=== PATIENT | male | born 1955 | race Caucasian/White ===

== ENCOUNTER 2017-06-09 05:18 | Observation (INO) | payer OTHER ==
[2017-06-09] VITALS (13 sets, daily range): BP systolic 98–179; BP diastolic 58–98; PULSE 75–92; TEMP 36.3–37; O2SAT 91–98; Ht 167.6 cm; Wt 81.0 kg
[~2017-06-09] VITALS: Ht 167.6 cm; Wt 81.0 kg
[2017-06-09] MEDS ORDERED: LISI-725 PO (05:57)
[2017-06-09] MEDS ORDERED: QUET1TAB34 PO (05:57)
[2017-06-09] MEDS ORDERED: ASPI-435 (05:57)
[2017-06-09] MEDS ORDERED: ATOR-26 PO (05:57)
[2017-06-09] MEDS ORDERED: METF-384 PO (05:57)
[2017-06-09] MEDS ORDERED: CLOP1TAB15 PO (05:57)
[2017-06-09] MEDS ORDERED: SERT1TAB71 PO (05:57)
[2017-06-09] MEDS ORDERED: PANT40TA PO (05:57)
[2017-06-09] MEDS ORDERED: CARV12.52 PO (05:57)
[2017-06-09] MEDS ORDERED: INSDGI SC (06:00)
[2017-06-09] MEDS ORDERED: SODIUM CHLORIDE 0.9% 1000ML IV SCH ×2 (06:00→15:00)
[2017-06-09] MEDS: CEFAZOLIN 1000MG/55 ML D5W IV SCH ×2 (06:00→08:25)
[2017-06-09] MEDS ORDERED: GABA-113 PO ×2 (06:00→06:02)
[2017-06-09] MEDS ORDERED: QUET1TAB30 PO (06:02)
--- NOTE | 2017-06-09 06:32 | History and Physical ---
History & Physical Date of Service Jun 09, 2017. History & Physical CC: Left leg and foot pain HPI: Mr. Liu was initially seen a few weeks ago and due to the discomfort in his left lower extremity and was advised to undergo ultrasound evaluation of his aortoiliac and lower extremities as well as a surveillance ultrasound of his carotid arteries as he is status post carotid endarterectomy. The patient is in the office today and states that he has constant pain in his left lower extremity worse than his distal calf and foot that is 10/10 at all times. He states that it is bad when it is down, when it is elevated, when he is lying in bed at night. It keeps him awake as well as when he is standing or attempting to walk on it, which he is not particularly able to do. The clinical research nurse with him today states that he does not see a bookstore clerk or allow anyone to touch his feet or cut his toenail. Ultrasound evaluations today demonstrated 60-69% stenosis of the right internal carotid artery, a patent left carotid endarterectomy site without evidence of restenosis, antegrade flow in both vertebrals and normal flow in both subclavian arteries. His aortoiliac ultrasound demonstrates no aneurysm. His left distal external iliac artery demonstrates over 50% stenosis, but otherwise, there is just scattered atherosclerotic disease without hemodynamically significant stenosis. His right lower extremity demonstrates 75% stenosis of his proximal SFA with monophasic flow distal to that lesion, 50% stenosis of his mid SFA and 50% stenosis of the anterior tibial artery with a right SHAN of 0.58 and calcified tibial arteries. His left lower extremity demonstrates a monophasic flow distal to his external iliac artery lesion, patent common femoral artery and stented SFA which is occluded with distal reconstitution distal to the stent. He has heavily calcified tibial arteries and a left SHAN of 0.42. We have no prior studies available for comparison. ALLERGIES: AZITHROMYCIN, CODEINE AND PERCOGESIC AND SIMVASTATIN. MEDICATIONS: Include aspirin, Celexa, Coreg, Lantus, Lipitor, metformin, Neurontin, Plavix, and Protonix. PAST MEDICAL HISTORY: Positive for heart disease, hypertension, diabetes, peripheral vascular occlusive disease and carotid disease. PAST SURGUICAL HISTORY: Includes all the above-mentioned vascular procedures. SOCIAL HISTORY: He smokes 1 pack a day for over 25 years and continues to smoke. He does not drink. REVIEW OF SYSTEMS: Ten systems are reviewed. It is positive findings were intolerance to heat and cold, heartburn, loss of appetite and occasional diarrhea. Also, easy bruisability, and the other positive findings are in the history of present illness. PHYSICAL EXAMINATION: The patient is awake, oriented x3. His blood pressure was 116/80 in the left, 98/72 in the right, heart rate was 92. Head and neck within normal limits. Bilateral carotid bruits. Lungs clear. Heart: Regular rate and rhythm. Abdominal exam is benign. I do not appreciate an aneurysmal dilatation of the aorta. Vascular exam of his lower extremity reveals a femoral pulse of +2 on the right, +1 on the left. I cannot appreciate pedal pulses in either foot. There is decreased capillary refill on the left side. which is just mild. He does have significant decreased capillary refill in the right. The right foot is discolored and has a purplish hue to it. No ulcerations are seen in either foot. Neurologic exam is grossly intact. Impression: Peripheral vascular disease of the left lower extremity with possible rest pain. PLAN AND RECMMENDATIONS: Patient is admitted for arteriography with possible intervention. I have discussed the risks options and benefits of the procedure with the patient. The patient understands the risks options and benefits and agrees to the procedure.
[2017-06-09] MEDS ORDERED: FENTANYL CITRATE INJ 50 MCG/1 ML 2 ML VIAL ONE ×2 (07:34→10:01)
[2017-06-09] MEDS ORDERED: MIDAZOLAM HCL 1 MG/ML 2ML VIAL ONE ×2 (07:35→10:01)
[2017-06-09] MEDS ORDERED: HEPARIN SOD (PORCINE) 1000 UNIT/ML 10 ML VIAL ONE (07:35)
--- NOTE | 2017-06-09 08:20 | History & Physical Bridge Note ---
H&P Re-Evaluation Bridge Note: I have examined the patient, reviewed the History & Physical and in the interval since the performance of the History & Physical I have noted the following changes of clinical significance: No changes noted
--- NOTE | 2017-06-09 08:21 | Procedure Note ---
Pre-Mod Sedation Assessment General Date of Moderate Sedation: Jun 09, 2017. Vital Signs: Vital Signs Past 12 Hours Date Time Temp Pulse Resp B/P (MAP) Pulse Ox O2 Delivery O2 Flow Rate FiO2 06/09/17 07:56 36.8 20 158/62 96 Room Air 06/09/17 06:02 36.8 82 20 158/62 (94) 96 Room Air Pre-Sedation Airway Assessment Short Thick Neck: Yes Hx of Sleep Apnea: No Smoking Status: Current Every Day Smoker Mallampati Classification: Class I ASA Classification: Class II Notes The planned sedation has been discussed with the patient and consent obtained. I have identified the patient, determined the appropriateness of sedation and have assessed the patient immediately prior to the procedure. All medicine(s) and interventions are by my order.
[2017-06-09] MEDS ORDERED: MIDAZOLAM HCL 1 MG/ML 2ML VIAL IV ONE ×2 (08:48→10:03)
[2017-06-09] MEDS ORDERED: FENTANYL CITRATE INJ 50 MCG/1 ML 2 ML VIAL IV ONE ×4 (08:48→10:23)
[2017-06-09] MEDS ORDERED: LIDOCAINE HCL 1% 20 ML VIAL INJ ONE (08:50)
[2017-06-09] MEDS ORDERED: HEPARIN SOD (PORCINE) 1000 UNIT/ML 10 ML VIAL IV ONE (09:39)
[2017-06-09] MEDS ORDERED: IODIXANOL (VISIPAQUE) 270 MG/ML 150ML FLUSH ONE (10:42)
--- NOTE | 2017-06-09 10:56 | [facility] Post Operative Brief Note ---
Immediate Operative Summary Operative Date Jun 09, 2017. Pre-Operative Diagnosis left superficial artery occlusion Post-Operative Diagnosis same Procedure(s) Performed Left Lower Extremity Angiogram, Percutaneous Transluminal Angioplasty and Stenting Of Left Superficial Artery, Percutaneous Transluminal Angioplasty Left Common Femoral Artery, Aortogram, Moderate Concious Sedation [address] Mckeon Pulpwood Cutter Surgeon(s) none Estimated Blood Loss 15 ml Findings occlusion of left sfa stents, small distal arteries, moderate infrapopliteal disease, very poor outflow to foot, good popliteal doppler post procedure. Will admit for observation due to foot pain and sluggish flow to foot Specimens none Anesthesia Local with sedation Complication(s) None Disposition
[2017-06-09] MEDS ORDERED: GLUCOSE 40% GEL 15 GM TUBE PO PRN (11:15)
[2017-06-09] MEDS ORDERED: OXYCODONE/ACETAMINOPHEN 5-325 TAB PO PRN (11:15)
[2017-06-09] MEDS ORDERED: DEXTROSE 50% 50 ML SYR IV PRN (11:15)
[2017-06-09] MEDS ORDERED: GLUCAGON FOR INJ 1 MG VIAL SQ PRN (11:15)
[2017-06-09] MEDS ORDERED: QUETIAPINE FUMARATE 25 MG TAB PO PRN (11:15)
[2017-06-09] MEDS ORDERED: GLUCOSE 10 TABS/TUBE PO PRN (11:15)
--- NOTE | 2017-06-09 11:18 | Procedure Note ---
Post-Moderate Sedation Plan General Date of Moderate Sedation Jun 09, 2017. Vital Signs: Vital Signs Past 12 Hours Date Time Temp Pulse Resp B/P (MAP) Pulse Ox O2 Delivery O2 Flow Rate FiO2 06/09/17 10:56 88 16 166/74 97 Nasal Cannula 4 06/09/17 07:56 36.8 20 158/62 96 Room Air 06/09/17 06:02 36.8 82 20 158/62 (94) 96 Room Air Review - Discharge Plan Post Moderate Sedation Plan: On clinical assessment, the patient appears to have tolerated the conscious sedation without complications. Patient is recovering as anticipated. Patient will continue to be monitored by nursing and may be discharged when conscious sedation discharge criteria are met.
[2017-06-09] MEDS ORDERED: PHARMACY GLYCEMIC MGMT CONSULT SCH (12:00)
[2017-06-09] MEDS ORDERED: MoRPHine SULFATE 2 MG/ML CARP ONE (12:02)
[2017-06-09] MEDS ORDERED: IV FLUIDS COMPLETED PRN (12:30)
[2017-06-09] MEDS ORDERED: SODIUM CHLORIDE 0.9% 1000ML 1,000 ML IV SCH (14:00)
[2017-06-09] MEDS ORDERED: MoRPHine SULFATE 4 MG/ML 1 ML CARP\\VIAL IV PRN (14:00)
[2017-06-09] MEDS ORDERED: MoRPHine SULFATE 2 MG/ML CARP IV PRN ×2 (14:00)
--- NOTE | 2017-06-09 14:16 | Pharmacy Progress Note ---
Glycemic Control Intl Consult Date of Service Jun 09, 2017. Scope Glycemic Pharmacist consulted by Dr Mckeon on 06/09/17 for glycemic control and to write orders per [facility] inpatient glycemic control protocol Objective Weight (Kilograms): 81 Accuchecks BSG (last 24hrs): Test 06/09/17 05:35 06/09/17 13:03 Bedside Glucose 158 mg/dl (70-99) 139 mg/dl (70-99) Recent Pertinent Medications Outpatient Anti-diabetic Regimen: * Lantus 40 units SQ HS * Metformin 1,000mg PO BIDM Risk Factors for Insulin Resistance: * Recent Surgery * Diet * IVF Assessment & Plan ASSESSMENT: * 61yo T2DM male with unknown degree of outpatient control. Will order A1c w/AM labs per protocol * Pt is maintained on basal insulin (Lantus) + oral antidiabetic agents as an outpatient * Oral agents are not recommended for inpatient use d/t drug interactions, changing PO intake, and difficulty titrating for acute hyper/hypoglycemia. ADA recommends re-initiating outpatient oral agents 1-2 days prior to discharge if/ when appropriate if they were held on admission. * Will hold oral agents for admission and utilize SQ basal bolus insulin regimen which is the recommended regimen for inpatient glycemic control. * Will initiate outpatient dosing and corresponding bolus insulin per parameters and titrate based on BSG trends. * Patient only administered 50% (20 units) of Lantus last evening in prep of NPO/surgery today. Will give full dose of Lantus tonight but may need to decrease further dosing as this outpatient dosing may be covering some prandial needs. * ADA & AACE recommend a goal blood sugar range 140-180 mg/dl for the majority of critically ill & non-critically ill patients. However, more stringent targets may be selected in individual cases. Will utilize more stringent goal of 110-140mg/dl based on patient age & comorbidities. Additionally, tighter glycemic control is warranted to facilitate wound/infection healing post- operatively. PLAN FOR INPATIENT GLYCEMIC CONTROL: * Holding outpatient oral diabetes medications * Basal insulin * Lantus 40 units SQ HS (this is outpatient dosing) titrate further doses based on BSG trends as this basal insulin dosing may be covering some prandial needs * Bolus insulin * NovoLog per scale ACHS or Q6hrs while NPO * Goal Range: Low 110 mg/dL - High 140 mg/dL * Correction Factor: 25 mg/dL/unit * Nutritional / Prandial insulin per carb ratio of 1 unit per 9 grams CHO consumed * A1c with AM labs * Please note that the plan above was derived based on current level of insulin resistance and hospital stress. These recommendations are appropriate for inpatient admission only. Plan of care upon discharge will need to be reassessed to avoid potential outpatient hypo/hyperglycemia. Thank you.
[2017-06-09] MEDS ORDERED: HEPARIN 25,000 UNIT/500ML D5W 500 ML IV PRN (14:30)
[2017-06-09] MEDS ORDERED: NURSING VERBAL MED ORDER ONE (15:00)
[2017-06-09] MEDS ORDERED: TRAMADOL HCL 50 MG TAB PO PRN (15:00)
[2017-06-09] MEDS: GABAPENTIN 300 MG CAP PO SCH (16:57)
[2017-06-09] MEDS ORDERED: INSULIN GLARGINE SOLOSTAR 100 UNITS/ML 3 ML PEN SC SCH (17:45)
[2017-06-09] MEDS: INSULIN ASPART 100 UNITS/ML 3 ML PEN SC SCH ×2 (18:28→22:12)
[2017-06-09] MEDS ORDERED: GABAPENTIN 300 MG CAP PO SCH (21:00)
[2017-06-09] MEDS ORDERED: QUETIAPINE FUMARATE 100 MG TAB PO SCH (21:00)
[2017-06-09] MEDS: MoRPHine SULFATE 4 MG/ML 1 ML CARP\\VIAL IV PRN (21:49)
[2017-06-09] MEDS: CARVEDILOL 12.5 MG TAB PO SCH (22:03)
[2017-06-10 03:56] VITALS: BP 90/57; PULSE 84; TEMP 36.9; O2SAT 92
[2017-06-10] MEDS: GABAPENTIN 300 MG CAP PO SCH ×2 (06:22→12:00)
[2017-06-10 07:45] VITALS: BP 89/53; PULSE 91; O2SAT 92
[2017-06-10] MEDS: INSULIN ASPART 100 UNITS/ML 3 ML PEN SC SCH ×2 (08:00→12:00)
[2017-06-10] MEDS ORDERED: PANTOprazole SOD 40 MG TAB PO SCH (09:00)
[2017-06-10] MEDS ORDERED: LISINOPRIL 20 MG TAB PO SCH (09:00)
[2017-06-10] MEDS ORDERED: ASPIRIN 81 MG ECTAB PO SCH (09:00)
[2017-06-10] MEDS ORDERED: SERTRALINE HCL 50 MG TAB PO SCH (09:00)
[2017-06-10] MEDS: CARVEDILOL 12.5 MG TAB PO SCH (09:00)
[2017-06-10] MEDS ORDERED: ATORVASTATIN 20 MG TAB PO SCH (09:00)
[2017-06-10] MEDS: MoRPHine SULFATE 4 MG/ML 1 ML CARP\\VIAL IV PRN (09:10)
--- NOTE | 2017-06-10 09:42 | Pharmacy Progress Note ---
Glycemic: Assessment & Plan Date of Service Jun 10, 2017. Assessment & Plan The patient is currently receiving 52 units of insulin per day. BSGs ranging 139 - 192 mg/dl over the past 24hrs. * Basal insulin: Lantus 40 units every 24 hours * Correctional Insulin: Novolog Correction per scale ACHS Goal Range: Low 110 mg/dL - High 140 mg/dL Correction Factor: 25 mg/dL/unit * Prandial insulin: Per carb ratio of 1 unit per 9 grams CHO consumed ASSESSMENT: * BSGs have been fairly stable but fasting is above goal this AM * I suspect that this is a result of reduced basal on 06/08 * Current basal dose is already a large portion of TDD so will tighten CF to provide additional coverage for today * A1c still pending so difficult to assess outpatient control PLAN FOR INPATIENT GLYCEMIC CONTROL: * Continue Lantus 40 units qHS * Continue Novolog ACHS * Goal 110-140 * TIGHTEN CF to 20 * CR 9 Pharmacy will continue to monitor patient daily and write orders per [facility] inpatient glycemic control protocol. Thanks. * Please note that the plan above was derived based on current level of insulin resistance and hospital stress. These recommendations are appropriate for inpatient admission only. Plan of care upon discharge will need to be reassessed to avoid potential outpatient hypo/hyperglycemia.
[2017-06-10 11:49] LABS: ESTIMATED AVERAGE GLUCOSE 154 mg/dl; HA1C FLAG Normal (Normal)
[2017-06-10 12:07] LABS: BUN/CREATININE RATIO 20.8 (10-20); CALCIUM 8.9 mg/dl (8.5-10.1); CREATININE 1.3 mg/dl (0.60-1.40); POTASSIUM 4.6 mmol/L (3.5-5.1)
--- NOTE | 2017-06-10 12:30 | Progress Note ---
Progress Note Date of Service: Jun 10, 2017. Subjective Wants to be left alone, Foot hurts if you touch it. Objective Vital Signs Vital Signs Past 12 Hours Date Time Temp Pulse Resp B/P (MAP) Pulse Ox O2 Delivery O2 Flow Rate FiO2 06/10/17 08:40 Room Air 06/10/17 07:45 91 20 89/53 (65) 92 Room Air 06/10/17 03:56 36.9 84 16 90/57 (68) 92 Room Air Exam Awake Alert Puncture site without problems Foot warm to touch. Laboratory and Microbiology Results Past 24 Hours Test 06/09/17 13:03 06/09/17 17:06 06/09/17 21:38 06/10/17 07:57 Range/Units Bedside Glucose 139 167 192 190 70-99 mg/dl Test 06/10/17 10:55 06/10/17 10:56 06/10/17 11:04 Range/Units Activated Partial Thromboplast Time 26.2 21.0-31.0 SECONDS Partial Thromboplastin Ratio 1.0 Sodium Level 134 136-145 mmol/L Potassium Level 4.6 3.5-5.1 mmol/L Chloride Level 102 98-107 mmol/L Carbon Dioxide Level 28 21-32 mmol/L Anion Gap 4.0 3-11 mmol/L Blood Urea Nitrogen 27 7-18 mg/dl Creatinine 1.30 0.60-1.40 mg/dl Est Creatinine Clear Calc Drug Dose 60.4 ml/min Estimated GFR () 68.7 Estimated GFR (Non- 59.3 BUN/Creatinine Ratio 20.8 10-20 Random Glucose 210 70-99 mg/dl Estimated Average Glucose 154 mg/dl Hemoglobin A1c 7.0 4.5-5.6 % Calcium Level 8.9 8.5-10.1 mg/dl Bedside Glucose 210 70-99 mg/dl Imp: Post stenting of SFA Plan: Foot warm. Will d/c today. Patient refusing most care.
--- NOTE | 2017-06-10 12:32 | Discharge Instructions ---
Discharge Instructions Date of Service Jun 10, 2017. Admission Reason for Admission: Ischemic Pain Of Left Foot Discharge Discharge Diagnosis / Problem: Superficial femoral artery occlusion Discharge Goals Goal(s): Therapeutic intervention Activity Recommendations Activity Limitations: per Instructions/Follow-up section . Instructions / Follow-Up Instructions / Follow-Up Call [phone] to schedule a follow up appointment if one not already scheduled. SPECIAL CARE INSTRUCTIONS: Medications: * Continue to take your medications as directed. If you have been given a prescription for Plavix, please fill it immediately and take as directed. Incision Care: * Your puncture site may have some bruising and minor swelling for about one week. * You will have a small dressing covering your puncture site. You may remove the dressing after 24 hours and shower. You may let the warm soapy water run over it, but be sure to dry the puncture site well and keep it dry. * DO NOT IMMERSE THE INCISION IN A TUB/POOL/etc. UNTIL HEALED. * Puncture sites should be kept covered with a band-aid until it begins to heal. Restrictions: * Depending on whether you leg or arm was punctured to access the arteries, you will be required to lay flat, hold your arm still, or both, for about 4 hours after the procedure to prevent bleeding. * Limit your activity for the first 48 hours. You may walk and go up and down steps. Avoid excessive bending or movement at the puncture site. Possible Complications: * Excessive Swelling - after blood flow is improved you may notice increased swelling in the lower legs. This is a normal response. This usually depends on the amount of blockages in the leg, how long they have been there prior to your procedure and how much blood flow was restored. Elevating your legs will help to improve this. Please notify our office ([phone] ) if the swelling does not go away after lying in bed overnight. * Infection/Drainage/Bleeding - Drainage or bleeding from the puncture site should be minimal. If you have excessive bleeding or drainage, call our office ([phone]) right away. * Pain - You may experience some mild pain or soreness at your puncture site. If your pain does not improve, please contact our office ([phone]). Call your doctor and seek emergent treatment if you develop: * Temperature above 101 degrees * Any fever or chills * Any redness or purulent drainage from the puncture site * Any new dusky/blue colored toes or feet with coolness or sharp or aching pain. SKIN IRRITATION: * You may experience some redness and/or swelling in the area where radiation was administered. If any skin irritation occurs, please contact your family physician. FOLLOW UP VISIT: Keep any scheduled doctor appointments. Current Hospital Diet Patient's current hospital diet: Diabetes Type 2 Diet, AHA Diet (Heart Healthy) Discharge Diet Recommended Diet: AHA Diet (Heart Healthy), Diabetes Type 2 Diet Procedures Procedures Performed: Left Lower Extremity Angiogram, Percutaneous Transluminal Angioplasty and Stenting Of Left Superficial Artery, Percutaneous Transluminal Angioplasty Left Common Femoral Artery, Aortogram, Moderate Concious Sedation 0848 to 1055 Pending Studies Studies pending at discharge: no Laboratory Results Hemoglobin A1c Test 06/10/17 10:56 Range/Units Estimated Average Glucose 154 mg/dl Hemoglobin A1c 7.0 H 4.5-5.6 % Medical Emergencies . Who to Call and When: Medical Emergencies: If at any time you feel your situation is an emergency, please call 911 immediately. . Non-Emergent Contact Non-Emergency issues call your: Surgeon . "Provider Documentation" section prepared by Davin Mckeon. . VTE Core Measure Inpt VTE Proph given/why not?: Enoxaparin (Lovenox)SQ
[2017-06-10 13:55] VITALS: BP 112/67; PULSE 91; TEMP 36.9; O2SAT 92
--- NOTE | 2017-06-16 10:47 | DISCHARGE SUMMARY ---
ADMISSION DIAGNOSIS: Severe peripheral vascular disease, left lower extremity with rest pain. DISCHARGE DIAGNOSES: 1. Status post left lower extremity angiography with REAMING MACHINE OPERATOR [employer] P[employer] and stenting of the left superficial femoral artery and REAMING MACHINE OPERATOR [employer] P[employer] of left common femoral artery. 2. Severe left lower extremity peripheral arterial disease with rest pain. DISCHARGE CONDITION: Stable. CONSULTATIONS IN THE HOSPITAL: Included none. PROCEDURES IN THE HOSPITAL: Included his left lower extremity angiography with REAMING MACHINE OPERATOR FOR PLASTIC and stenting of his SFA and REAMING MACHINE OPERATOR [employer] P[employer]IC of his left common femoral artery performed on 06/09/2017 without any significant complications with an EBL of 15 mL. HISTORY OF PRESENT ILLNESS: Mr. Liu is a 61-year-old male who was seen a few weeks prior to this due to severe discomfort in his left lower extremity and history of peripheral arterial disease as well as carotid disease. He was describing the pain in his left foot as being constant, although sometimes waxing and waning slightly. He states the pain was keeping him awake at night and it is as at 10/10 at all times and is particularly painful when he was ambulating. He had an ultrasound performed which demonstrated significant disease in his left lower extremity and left SHAN of 0.4, which was likely falsely elevated due to heavily calcified tibial arteries. He was recommended to undergo left leg arteriography with intervention if possible to alleviate his discomfort. HOSPITAL COURSE: The patient was admitted on 06/09/2017 after undergoing his left lower extremity angiography with intervention for observation. During the procedure, the patient was noted to have significant distal disease with very poor outflow to the foot and while everything was done during the procedure that was possible to be performed, it was felt to be prudent to keep the patient for observation overnight. The patient continued to have some pain in his foot and did not state that it was significantly improved; however, he was very belligerent and wished to leave the hospital as he was refusing all IVs or pain medication. The patient was discharged home on postop day #1. PHYSICAL EXAMINATION: VITAL SIGNS: On day of discharge, patient's vital signs was as follows: Blood pressure of 90/57, respiratory rate of 16, pulse of 91, temperature of 36.9 and pulse oximetry of 92% on room air. CONSTITUTIONAL AND GENERAL: The patient is a chronically ill appearing older than stated age appearing male in no acute distress. He does have some difficulty understanding and cooperating due to being mentally handicapped. HEAD: Normocephalic and atraumatic. EYES: EOMI. ENMT: He demonstrates no hearing loss, rhinorrhea or pharyngeal erythema. NECK: Supple, nontender, midline trachea without masses or crepitus. LUNGS: Exam demonstrates no dyspnea, they are decreased throughout but clear. ABDOMEN: Soft, nontender with normoactive bowel sounds in all 4 upper quadrants. No organomegaly. There is no flank or CVA tenderness. EXTREMITIES: His puncture site at the groin is healing well. There is no edema or discharge. The area is mildly tender and there is a slight area of ecchymosis but no hematoma noted. His femoral pulse was +2 bilaterally. Left DP and PT pulses are nonpalpable. He did have a dopplerable popliteal. His left foot demonstrated slightly improved capillary refill and was slightly warmer than prior to the procedure. He did not appear to have any signs of a compartment syndrome. He is no ulcerations on the foot or toes. NEUROLOGICAL: He has grossly intact cranial nerves and grossly intact sensation but was uncooperative for any further testing. DIET: Should be a low cholesterol AHA diabetic diet. FOLLOWUP: Should be with Dr. Mckeon in 2 weeks for reevaluation of his puncture site as well as his leg. MEDICATIONS: Reconciled in the chart and are as per his discharge instructions. The patient is to call the office if any other questions.
[2017-06-29] MEDS ORDERED: GABA-112 PO (10:45)
[2017-06-29] MEDS ORDERED: TAMS0.4C38 PO (10:49)
[2017-06-29] MEDS ORDERED: SULF10SO2 OPL (10:49)
[2017-07-14] MEDS ORDERED: HYDR2TAB48 PO (09:06)
[2017-07-14] MEDS ORDERED: NF656 TOP (09:06)
--- NOTE | 2017-07-14 09:44 | DIAGNOSTIC IMAGING REPORT ---
DATE OF PROCEDURE: 06/09/2017 PREOPERATIVE DIAGNOSIS: Left superficial femoral artery occlusion. POSTOPERATIVE DIAGNOSIS: Same. PROCEDURE PERFORMED: Left lower extremity arteriography, percutaneous transluminal angioplasty and stenting of the superficial femoral artery on the left side, percutaneous transluminal angioplasty of the left common femoral artery, aortogram and conscious sedation, 08:48to 10:55. SURGEON: Davin Mckeon MD ANESTHETIC: Local with sedation. PROCEDURE INDICATIONS: The patient is a 61-year-old gentleman with severe ischemia of the left lower extremity. Arteriography with possible intervention was recommended for limb salvage. He understood the risks, options and benefits and agreed to have this procedure. The patient was taken to the angiogram suite and placed in supine position. After the groins were prepped and draped in a sterile manner, local anesthetic was administered. Percutaneous puncture was made of the right common femoral artery. An 0.035 wire was inserted into the aorta from the 5 Romanian sheath which was inserted into the groin. A pigtail was then inserted. Arteriography was performed. This showed the renal arteries to be patent. The aorta and iliac had mild disease but were fairly small. The left external iliac artery distally was significantly narrowed as well as the common femoral. There was total occlusion of the superficial femoral artery at its origin as well as occlusion of the profunda with a tight origin of the 1 profunda branch. The superficial femoral artery reconstituted at the adductor hiatus. There was anterior tibial and peroneal run off seen down to the ankle. There was no posterior tibial artery below the ankle and a very small dorsalis pedis, which had a short occlusion at the ankle joint. The SFA did have previous stents which were occluded. We tried to get a wire down through the superficial femoral artery. We managed to cannulate the graft where the stent that was present. We did this with an 0.035 wire and a Quick-Cross. Once the Quick-Cross was through the lesions, we pulled the wire. We did hand injection which showed it to be true lumen. There was better visualization distally and arteries were fairly extremely small distally. We then ballooned the superficial femoral artery and common femoral artery. We reinserted the wire through the Quick-Cross. We used a 4 x 100 Carmel balloon to make a channel through the occluded stents. Once this was done, we upsized to a 7 x 100 balloon. We got a slightly better opening. We then decided to restent this area. We used a 5 x 100 Tigress stent into the left superficial femoral artery followed by a 6 x 100 x2 for the superficial femoral artery proximally. We ended with a 7 x 100 Tigress in the proximal superficial femoral artery. The balloon was then reinserted using a 5 x 100 balloon. The stents were ballooned in their entirety. Once these areas were ballooned, another arteriogram was performed post-stenting. This showed flow through the stent; however, was very sluggish. We did reinsert Quick-Cross down below the stents to check the outflow. Due to the small vessel size occlusion of the foot, the outflow was very poor. I don't think restenting of the superficial and common in its total length was going to have good prospects of staying open due to the outflow disease. At that point we decided to do no further interventions. The destination sheath which was in the right groin which was exchanged previously was removed over wire. The puncture site closed with a Star closure device. Adequate hemostasis was noted on the groin and sterile dressings were then applied. The patient then left the angio suite in good condition and tolerated the procedure well.
== END 2017-06-10 14:45 | disposition home health service (06) ==
LOC: C.ACU 05:18 → C.MSN 11:17 → EDBEDREQ 11:37 → ENRESERV 11:47
PROVIDERS: ADMIT Surgery Vascular Surgery; ATTEND Surgery Vascular Surgery
DX: I70.202 Unspecified atherosclerosis of native arteries of extremities, left leg (principal); I73.9 Peripheral vascular disease, unspecified; E11.9 Type 2 diabetes mellitus without complications; I10 Essential (primary) hypertension; Z98.890 Other specified postprocedural states; Z88.1 Allergy status to other antibiotic agents; Z88.5 Allergy status to narcotic agent; F17.200 Nicotine dependence, unspecified, uncomplicated; Z79.82 Long term (current) use of aspirin; Z79.4 Long term (current) use of insulin; Z79.01 Long term (current) use of anticoagulants

== ENCOUNTER 2017-07-07 09:47 | Inpatient (IN) | payer OTHER ==
[2017-06-29 10:50] VITALS: BMI 26.0
--- NOTE | 2017-06-29 11:42 | PAT Medication Instructions ---
Service Date Jun 29, 2017. Current Home Medication List Aspirin (Aspirin 81), QAM Atorvastatin (Lipitor), 80 MG PO HS Carvedilol (Coreg), 1 TAB PO BID Clopidogrel (Plavix), 2 TAB PO QAM Gabapentin (Neurontin), 100 MG PO 5XDAY Insulin Glargine (Lantus), 40 SC QPM Lisinopril (Zestril), 20 MG PO QAM Metformin Hcl (Glucophage), 1,000 MG PO BID Pantoprazole (Protonix), 40 MG PO BID Quetiapine Fumarate (Seroquel), 100 MG PO HS Quetiapine Fumarate (Seroquel), 25 MG PO QAM PRN for Anxiety Sertraline Hcl (Zoloft), 50 MG PO QAM Sulfacetamide Sodium (Ophth) (Bleph-10), 1 DROPS OPL QID Tamsulosin Hcl (Flomax), 0.4 MG PO HS Medication Instructions For Your Scheduled Surgery -Hold the following medications per your surgeon's instructions: Clopidogrel (Plavix), 2 TAB PO QAM - Hold the following medications 48 hours prior to surgery: Metformin Hcl (Glucophage), 1,000 MG PO BID - Hold the following medications the morning of surgery: Lisinopril (Zestril), 20 MG PO QAM - Take the following medications the morning of surgery with a sip of water: Sulfacetamide Sodium (Ophth) (Bleph-10), 1 DROPS OPL QID (bring with you to the hospital) Quetiapine Fumarate (Seroquel), 25 MG PO QAM PRN for Anxiety Pantoprazole (Protonix), 40 MG PO BID Gabapentin (Neurontin), 100 MG PO 5XDAY Carvedilol (Coreg), 1 TAB PO BID Aspirin (Aspirin 81), QAM Sertraline Hcl (Zoloft), 50 MG PO QAM - Take the following medications as scheduled the night before surgery: Tamsulosin Hcl (Flomax), 0.4 MG PO HS Sulfacetamide Sodium (Ophth) (Bleph-10), 1 DROPS OPL QID Quetiapine Fumarate (Seroquel), 100 MG PO HS Pantoprazole (Protonix), 40 MG PO BID Insulin Glargine (Lantus), 40 SC QPM Gabapentin (Neurontin), 100 MG PO 5XDAY Atorvastatin (Lipitor), 80 MG PO HS Carvedilol (Coreg), 1 TAB PO BID If you have any questions please call us at [phone] or [phone] or [phone]
[2017-06-29 12:37] LABS: BASO % 0.6 %; BASO ABS # 0.08 K/uL (0-0.2); EOS % 3.7 %; EOS ABS # 0.49 K/uL (0-0.5); HEMATOCRIT 40.2 % (42-52); IG# 0.03 K/uL (0.00-0.02); LYMPH % 25.9 %; LYMPH ABS # 3.43 K/uL (1.2-3.4); MEAN CELL VOLUME 89.5 fL (80-100); MEAN CORPUSCULAR HGB CONC 32.3 g/dl (32-36); MEAN PLATELET VOLUME 11.4 fL (7.4-10.4); MONO ABS # 0.92 K/uL (0.11-0.59); NEUT % 62.6 %; NEUT ABS # 8.28 K/uL (1.4-6.5); PLATELET COUNT 327 K/uL (130-400); RED CELL DISTRIBUTION WIDTH CV 12.8 % (11.5-14.5); RED CELL DISTRIBUTION WIDTH SD 41.8 fL (36.4-46.3); WHITE BLOOD COUNT 13.23 K/uL (4.8-10.8)
--- NOTE | 2017-06-29 12:37 | DIAGNOSTIC IMAGING REPORT ---
CHEST 2 VIEWS ROUTINE HISTORY: 61 years-old Male PAT preoperative exam. No acute chest complaints. Left lower extremity ischemia COMPARISON: None available TECHNIQUE: PA and lateral views of the chest FINDINGS: Prior median sternotomy. Surgical clips project over the left heart border, left neck and left lung apex. No pneumothorax, pleural effusion, focal airspace consolidation or overt pulmonary edema. Cholecystectomy clips noted. Multilevel endplate spurring of the spine. Bones are grossly intact. IMPRESSION: No acute cardiopulmonary process. The above report was generated using voice recognition software. It may contain grammatical, syntax or spelling errors. Electronically signed by: Dano Yepez M.D. 06/29/2017 12:36 PM Dictated Date/Time: 06/29/2017 12:34 PM
[2017-06-29 12:51] LABS: INR 1.1 (0.9-1.1); PTT PATIENT 25.3 SECONDS (21.0-31.0)
[2017-06-29 13:07] LABS: CALCIUM 9.4 mg/dl (8.5-10.1); CREATININE 1.83 mg/dl (0.60-1.40); POTASSIUM 5.1 mmol/L (3.5-5.1)
[2017-07-07] VITALS (9 sets, daily range): BP systolic 122–174; BP diastolic 79–92; PULSE 88–107; TEMP 36.6–36.9; O2SAT 93–98; Ht 167.6 cm; Wt 73.0 kg
[~2017-07-07] VITALS: Ht 167.6 cm; Wt 73.0 kg
--- NOTE | 2017-07-07 06:20 | History and Physical ---
History & Physical Date of Service Jul 07, 2017. History & Physical CC: Left leg and foot pain HPI: Mr. Liu was initially seen due to the discomfort in his left lower extremity and was advised to undergo ultrasound evaluation of his aortoiliac and lower extremities as well as a surveillance ultrasound of his carotid arteries as he is status post carotid endarterectomy. The patient is in the office today and states that he has constant pain in his left lower extremity worse than his distal calf and foot that is 10/10 at all times. He states that it is bad when it is down, when it is elevated, when he is lying in bed at night. It keeps him awake as well as when he is standing or attempting to walk on it, which he is not particularly able to do. The etl database developer with him today states that he does not see a retail analyst or allow anyone to touch his feet or cut his toenail. Ultrasound evaluations today demonstrated 60-69% stenosis of the right internal carotid artery, a patent left carotid endarterectomy site without evidence of restenosis, antegrade flow in both vertebrals and normal flow in both subclavian arteries. His aortoiliac ultrasound demonstrates no aneurysm. His left distal external iliac artery demonstrates over 50% stenosis , but otherwise, there is just scattered atherosclerotic disease without hemodynamically significant stenosis. His right lower extremity demonstrates 75 % stenosis of his proximal SFA with monophasic flow distal to that lesion, 50% stenosis of his mid SFA and 50% stenosis of the anterior tibial artery with a right SHAN of 0.58 and calcified tibial arteries. His left lower extremity demonstrates a monophasic flow distal to his external iliac artery lesion, patent common femoral artery and stented SFA which is occluded with distal reconstitution distal to the stent. He has heavily calcified tibial arteries and a left SHAN of 0.42. We have no prior studies available for comparison. He underwent arteriography and found not to be a candidate for any intervention, endovascular or open ALLERGIES: AZITHROMYCIN, CODEINE AND PERCOGESIC AND SIMVASTATIN. MEDICATIONS: Include aspirin, Celexa, Coreg, Lantus, Lipitor, metformin, Neurontin, Plavix, and Protonix. PAST MEDICAL HISTORY: Positive for heart disease, hypertension, diabetes, peripheral vascular occlusive disease and carotid disease. PAST SURGUICAL HISTORY: Includes all the above-mentioned vascular procedures. SOCIAL HISTORY: He smokes 1 pack a day for over 25 years and continues to smoke. He does not drink. REVIEW OF SYSTEMS: Ten systems are reviewed. It is positive findings were intolerance to heat and cold, heartburn, loss of appetite and occasional diarrhea. Also, easy bruisability, and the other positive findings are in the history of present illness. PHYSICAL EXAMINATION: The patient is awake, oriented x3. His blood pressure was 116/80 in the left, 98/72 in the right, heart rate was 92. Head and neck within normal limits. Bilateral carotid bruits. Lungs clear. Heart: Regular rate and rhythm. Abdominal exam is benign. I do not appreciate an aneurysmal dilatation of the aorta. Vascular exam of his lower extremity reveals a femoral pulse of +2 on the right, +1 on the left. I cannot appreciate pedal pulses in either foot. There is decreased capillary refill on the left side. which is just mild. He does have significant decreased capillary refill in the right. The right foot is discolored and has a purplish hue to it. No ulcerations are seen in either foot. Neurologic exam is grossly intact. Impression: Peripheral vascular disease of the left lower extremity with rest pain. PLAN AND RECMMENDATIONS: Patient is admitted for left BKA. I have discussed the risks options and benefits of the procedure with the patient. The patient understands the risks options and benefits and agrees to the procedure.
[~2017-07-07 09:47] MED LIST: ASPI-435; ATOR-26 PO; CARV12.52 PO; CLOP1TAB15 PO; GABA-112 PO; INSDGI SC; LACTATED RINGER'S 1000ML 1,000 ML IV SCH; LISI-725 PO; METF-384 PO; PANT40TA PO; QUET1TAB30 PO; QUET1TAB34 PO; SERT1TAB71 PO; SODIUM CHLORIDE 0.9% 1000ML 1,000 ML IV SCH; SULF10SO2 OPL; TAMS0.4C38 PO
[2017-07-07] MEDS ORDERED: ATROPINE SULFATE 0.1 MG/ML 5ML SYR IV PRN (11:15)
[2017-07-07] MEDS ORDERED: MEPERIDINE HCL 25 MG/ML CARP IV PRN (11:15)
[2017-07-07] MEDS ORDERED: EpHEDrine SULFATE INJ 50 MG/ML AMP IV PRN (11:15)
[2017-07-07] MEDS ORDERED: LABETALOL HCL IV 5 MG/ML 20ML IV PRN (11:15)
[2017-07-07] MEDS ORDERED: ONDANSETRON INJ 2 MG/ML 2 ML VIAL IV PRN (11:15)
[2017-07-07] MEDS ORDERED: FENTANYL CITRATE INJ 50 MCG/1 ML 2 ML VIAL ONE (12:09)
[2017-07-07] MEDS ORDERED: ROCURONIUM BROMIDE 10 MG/ML 5 ML VIAL IV ONE (13:09)
[2017-07-07] MEDS ORDERED: ONDANSETRON INJ 2 MG/ML 2 ML VIAL ONE (13:09)
[2017-07-07] MEDS ORDERED: GLYCOPYRROLATE INJ 0.2 MG/ML VIAL ONE (13:09)
[2017-07-07] MEDS ORDERED: PROPOFOL IV EMULSION 10 MG/ML 20 ML VIAL IV ONE (13:09)
[2017-07-07] MEDS ORDERED: NEOSTIGMINE METHYLSULFATE 5 MG/5 ML SYR ONE (13:09)
[2017-07-07] MEDS ORDERED: CEFAZOLIN SOD 1 GM VIAL ONE (13:10)
--- NOTE | 2017-07-07 13:21 | [facility] Post Operative Brief Note ---
Immediate Operative Summary Operative Date Jul 07, 2017. Pre-Operative Diagnosis Peripheral vascular disease left lower extremity Post-Operative Diagnosis Same as preop Procedure(s) Performed Left Below the Knee Amputation Surgeon Dr. Mckeon Bottle Selector Surgeon(s) Rhett Rico PA-C Estimated Blood Loss 150 cc Findings viable muscle, good bleeding Specimens A: left below the knee amputation Anesthesia Gen Complication(s) None Disposition Recovery Room / PACU
[2017-07-07] MEDS ORDERED: OXYCODONE/ACETAMINOPHEN 5-325 TAB PO PRN (13:30)
[2017-07-07] MEDS ORDERED: CEFAZOLIN IV 1,000 MG in DEXTROSE 5% 50ML 50 ML IV SCH (13:30)
[2017-07-07] MEDS ORDERED: GLUCOSE 10 TABS/TUBE PO PRN (13:30)
[2017-07-07] MEDS ORDERED: GLUCAGON FOR INJ 1 MG VIAL SQ PRN (13:30)
[2017-07-07] MEDS ORDERED: GLUCOSE 40% GEL 15 GM TUBE PO PRN (13:30)
[2017-07-07] MEDS ORDERED: DEXTROSE 50% 50 ML SYR IV PRN (13:30)
[2017-07-07] MEDS ORDERED: QUETIAPINE FUMARATE 25 MG TAB PO PRN (13:30)
--- NOTE | 2017-07-07 13:35 | [facility] Operative Report ---
Operative Report Operative Date Jul 07, 2017. Pre-Operative Diagnosis Peripheral vascular disease left lower extremity Post-Operative Diagnosis Same as preop Procedure(s) Performed Left Below the Knee Amputation Surgeon Dr. Mckeon Reinsurance Accountant Surgeon(s) Rhett Rico PA-C Estimated Blood Loss 150 cc Findings good viable muscle Specimens A: left below the knee amputation Anesthesia Gen Complication(s) None Disposition Recovery Room / PACU Indications This is a 61-year-old white diabetic male with ischemic rest pain of his left foot. He could not be treated with any endovascular or open procedure to increase the flow. Left below the knee amputation was recommended. I have discussed the risks options and benefits of the procedure with the patient. The patient understands the risks options and benefits and agrees to the procedure. Description of Procedure The patient was taken to the operating room placed in the supine position. After general anesthesia was accomplished the left leg was prepped and draped in a sterile manner. Incision was made 5 fingerbreadths below the tibial tuberosity mid way through the left lower leg. Anterior compartment muscles were divided. Anterior tibial artery bundle was clamped and divided. The fibula was then transected 2 cm proximal to the point of the tibial transection. This was done with the power saw. The periosteum was then elevated from the tibia. A Gigli saw was used and the tibia was transected and beveled anteriorly. The surface of the bone was nice and smooth without any jagged edges. Using the amputation knife the posterior flap was made using the soleus and gastroc muscles as a base of the flap. All muscle appeared to be very viable with good bleeding. Adequate hemostasis was then obtained. Hemostasis was noted and the flap was brought up anteriorly. The fascial layers were approximated using interrupted 3-0 Vicryl. Leanna were used for the skin edges. Sterile dressings were applied. Patient left the operating room in satisfactory condition and tolerated the procedure well. Nahomy Rico Pac assisted due to lack of resident availability and was necessary for prepping, draping, retraction, wound closure defects, subQ and skin closure and was necessary for the case. I attest to the content of the Intraoperative Record and any orders documented therein. Any exceptions are noted below.
[2017-07-07] MEDS: FENTANYL CITRATE INJ 50 MCG/1 ML 2 ML VIAL IV PRN ×4 (13:42→14:27)
[2017-07-07] MEDS: HYDROmorphone INJ 1 MG/ML SYR IV PRN ×3 (13:56→14:41)
--- NOTE | 2017-07-07 14:03 | Anesthesiology Progress Note ---
Anesthesia Post Op Note Date & Time Jul 07, 2017 at 14:03 Vital Signs Pain Intensity: 7 Vital Signs Past 12 Hours Date Time Temp Pulse Resp B/P (MAP) Pulse Ox O2 Delivery O2 Flow Rate FiO2 07/07/17 13:55 88 12 165/89 95 Nasal Cannula 2 07/07/17 13:45 88 12 169/85 99 Oxymask 10 07/07/17 13:35 77 17 154/79 99 Oxymask 07/07/17 13:29 36.8 74 18 157/74 98 Oxymask 07/07/17 10:26 36.6 88 18 122/84 97 Room Air Notes Mental Status: alert / awake / arousable, participated in evaluation Pt Amnestic to Procedure: Yes Nausea / Vomiting: adequately controlled Pain: adequately controlled Airway Patency, RR, SpO2: stable & adequate BP & HR: stable & adequate Hydration State: stable & adequate Anesthetic Complications: no major complications apparent
[2017-07-07] MEDS ORDERED: GABA-112 PO (16:42)
[2017-07-07] MEDS ORDERED: NURSING VERBAL MED ORDER ONE (17:15)
[2017-07-07] MEDS: INSULIN HUMAN REGULAR SC SCH ×2 (17:15→21:30)
[2017-07-07] MEDS: SULFACETAMIDE SODIUM 10% OP SOLN 15 ML BTL OPL SCH ×2 (17:26→20:42)
[2017-07-07] MEDS: MoRPHine SULFATE 2 MG/ML CARP IV PRN ×2 (17:27→20:46)
[2017-07-07] MEDS: GABAPENTIN 100 MG CAP PO SCH ×2 (18:20→20:45)
[2017-07-07] MEDS: CEFAZOLIN IV 1,000 MG in SYRINGE 0 ML IV SCH (20:42)
[2017-07-07] MEDS: CARVEDILOL 12.5 MG TAB PO SCH (20:43)
[2017-07-07] MEDS: ATORVASTATIN 40 MG TAB PO SCH (20:44)
[2017-07-07] MEDS: TAMSULOSIN HCL 0.4 MG CAP PO SCH (20:44)
[2017-07-07] MEDS: PANTOprazole SOD 40 MG TAB PO SCH (20:45)
[2017-07-07] MEDS: QUETIAPINE FUMARATE 100 MG TAB PO SCH (20:45)
[2017-07-07] MEDS: MoRPHine SULFATE 4 MG/ML 1 ML CARP\\VIAL IV PRN (23:36)
[2017-07-08] VITALS (7 sets, daily range): BP systolic 104–166; BP diastolic 73–91; PULSE 96–111; TEMP 36.9–37.1; O2SAT 93–96
[2017-07-08] MEDS: CEFAZOLIN IV 1,000 MG in SYRINGE 0 ML IV SCH (03:59)
[2017-07-08] MEDS: MoRPHine SULFATE 4 MG/ML 1 ML CARP\\VIAL IV PRN ×3 (07:36→15:15)
[2017-07-08] MEDS: ENOXAPARIN 30 MG/0.3 ML SYR SQ SCH ×3 (07:37→21:00)
[2017-07-08] MEDS: GABAPENTIN 100 MG CAP PO SCH ×4 (07:39→21:00)
--- NOTE | 2017-07-08 08:23 | Progress Note ---
Progress Note Date of Service: Jul 08, 2017. Subjective Not answering questions today. Claims he cant straighten his left leg when asked Objective Vital Signs Vital Signs Past 12 Hours Date Time Temp Pulse Resp B/P (MAP) Pulse Ox O2 Delivery O2 Flow Rate FiO2 07/08/17 07:41 37.1 100 18 166/91 (116) 95 Room Air 07/08/17 03:55 36.9 98 18 131/76 (94) 96 Room Air 07/07/17 23:30 Room Air 07/07/17 22:58 36.9 97 18 166/82 (110) 93 Room Air 07/07/17 20:40 96 148/81 (103) Exam Awake and alert. VSS Afebrile Dressing intact Unable to touch due to patient Patient will not try to straighten his stump. Laboratory and Microbiology Results Past 24 Hours Test 07/07/17 10:13 07/07/17 13:49 07/07/17 17:11 07/07/17 20:28 Range/Units Bedside Glucose 183 140 149 148 70-99 mg/dl Test 07/08/17 04:44 Range/Units Imp: Post left BKA Plan: Will need residential placement.
[2017-07-08] MEDS ORDERED: TRAMADOL HCL 50 MG TAB PO PRN (08:30)
[2017-07-08] MEDS: INSULIN HUMAN REGULAR SC SCH ×4 (09:48→21:47)
[2017-07-08] MEDS: LISINOPRIL 20 MG TAB PO SCH (09:52)
[2017-07-08] MEDS: CARVEDILOL 12.5 MG TAB PO SCH ×2 (09:52→21:41)
[2017-07-08] MEDS: ASPIRIN 81 MG ECTAB PO SCH (09:53)
[2017-07-08] MEDS: CLOPIDOGREL BISULFATE 75 MG TAB PO SCH (09:53)
[2017-07-08] MEDS: SERTRALINE HCL 50 MG TAB PO SCH (09:53)
[2017-07-08] MEDS: PANTOprazole SOD 40 MG TAB PO SCH ×2 (09:53→21:43)
[2017-07-08] MEDS: SULFACETAMIDE SODIUM 10% OP SOLN 15 ML BTL OPL SCH ×4 (09:54→21:00)
[2017-07-08] MEDS: MoRPHine SULFATE 2 MG/ML CARP IV PRN (21:35)
[2017-07-08] MEDS: QUETIAPINE FUMARATE 100 MG TAB PO SCH (21:36)
[2017-07-08] MEDS: ATORVASTATIN 40 MG TAB PO SCH (21:37)
[2017-07-08] MEDS: TAMSULOSIN HCL 0.4 MG CAP PO SCH (21:37)
[2017-07-09] MEDS: MoRPHine SULFATE 4 MG/ML 1 ML CARP\\VIAL IV PRN (02:27)
[2017-07-09 07:56] VITALS: BP 148/87; PULSE 99; TEMP 36.6; O2SAT 96
[2017-07-09] MEDS: ENOXAPARIN 30 MG/0.3 ML SYR SQ SCH ×2 (09:00→21:19)
[2017-07-09] MEDS: GABAPENTIN 100 MG CAP PO SCH ×4 (09:10→21:18)
[2017-07-09] MEDS: ASPIRIN 81 MG ECTAB PO SCH (09:11)
[2017-07-09] MEDS: PANTOprazole SOD 40 MG TAB PO SCH ×2 (09:12→21:18)
[2017-07-09] MEDS: CLOPIDOGREL BISULFATE 75 MG TAB PO SCH (09:12)
[2017-07-09] MEDS: LISINOPRIL 20 MG TAB PO SCH (09:12)
[2017-07-09] MEDS: SERTRALINE HCL 50 MG TAB PO SCH (09:13)
[2017-07-09] MEDS: SULFACETAMIDE SODIUM 10% OP SOLN 15 ML BTL OPL SCH ×4 (09:14→21:18)
[2017-07-09] MEDS: INSULIN HUMAN REGULAR SC SCH ×4 (09:19→21:27)
--- NOTE | 2017-07-09 09:32 | Progress Note ---
Progress Note Date of Service: Jul 09, 2017. Subjective Complaining of incisional pain Objective Vital Signs Vital Signs Past 12 Hours Date Time Temp Pulse Resp B/P (MAP) Pulse Ox O2 Delivery O2 Flow Rate FiO2 07/09/17 07:56 36.6 99 16 148/87 (107) 96 Room Air 07/09/17 00:20 Room Air 07/08/17 22:59 37.1 103 17 148/85 (106) 93 Room Air Exam VSS Afebrile Right leg with good dopplers Left leg incision dry and clean. Laboratory and Microbiology Results Past 24 Hours Test 07/08/17 11:54 07/08/17 16:38 07/08/17 20:38 Range/Units Bedside Glucose 137 162 182 70-99 mg/dl Imp: Post BKA Plan: Doing well Await placement. Can be d/c'd when bed available.
[2017-07-09] MEDS: CARVEDILOL 12.5 MG TAB PO SCH ×2 (13:17→21:18)
[2017-07-09] MEDS: TRAMADOL HCL 50 MG TAB PO PRN (13:18)
[2017-07-09 15:00] VITALS: BP 175/88; PULSE 100; TEMP 36.6; O2SAT 96
[2017-07-09 15:50] VITALS: O2SAT 96
[2017-07-09] MEDS ORDERED: NURSING VERBAL MED ORDER ONE (16:00)
[2017-07-09] MEDS ORDERED: MoRPHine SULFATE 2 MG/ML CARP ONE (16:08)
[2017-07-09 21:03] VITALS: BP 162/85; PULSE 92
[2017-07-09] MEDS: ATORVASTATIN 40 MG TAB PO SCH (21:18)
[2017-07-09] MEDS: TAMSULOSIN HCL 0.4 MG CAP PO SCH (21:18)
[2017-07-09] MEDS: QUETIAPINE FUMARATE 100 MG TAB PO SCH (21:18)
[2017-07-09 22:53] VITALS: BP 119/76; PULSE 93; TEMP 37.1; O2SAT 94
[2017-07-10 03:34] VITALS: BP 98/64; PULSE 89; TEMP 37.1; O2SAT 95
--- NOTE | 2017-07-10 07:57 | Anesthesiology Progress Note ---
Anesthesia Post Op Note Date & Time Jul 10, 2017 at 07:57 Vital Signs Vital Signs Past 12 Hours Date Time Temp Pulse Resp B/P (MAP) Pulse Ox O2 Delivery O2 Flow Rate FiO2 07/10/17 03:34 37.1 89 16 98/64 (75) 95 Room Air 07/09/17 23:55 Room Air 07/09/17 22:53 37.1 93 16 119/76 (90) 94 Room Air 07/09/17 21:03 92 162/85 (110) Notes Mental Status: alert / awake / arousable, participated in evaluation Pt Amnestic to Procedure: Yes Nausea / Vomiting: adequately controlled Pain: adequately controlled Airway Patency, RR, SpO2: stable & adequate BP & HR: stable & adequate Hydration State: stable & adequate Anesthetic Complications: no major complications apparent
[2017-07-10 07:58] VITALS: BP 118/72; PULSE 93; TEMP 36.8; O2SAT 93
[2017-07-10] MEDS: INSULIN HUMAN REGULAR SC SCH ×3 (08:00→13:04)
[2017-07-10] MEDS: ASPIRIN 81 MG ECTAB PO SCH ×2 (08:21→12:58)
[2017-07-10] MEDS: GABAPENTIN 100 MG CAP PO SCH ×2 (08:21→12:56)
[2017-07-10] MEDS: CLOPIDOGREL BISULFATE 75 MG TAB PO SCH ×2 (08:21→12:57)
[2017-07-10] MEDS: CARVEDILOL 12.5 MG TAB PO SCH ×2 (08:21→12:57)
[2017-07-10] MEDS: SULFACETAMIDE SODIUM 10% OP SOLN 15 ML BTL OPL SCH ×2 (08:21→12:58)
[2017-07-10] MEDS: LISINOPRIL 20 MG TAB PO SCH ×2 (08:21→12:57)
[2017-07-10] MEDS: PANTOprazole SOD 40 MG TAB PO SCH ×2 (08:22→12:57)
[2017-07-10] MEDS: SERTRALINE HCL 50 MG TAB PO SCH ×2 (08:22→12:57)
[2017-07-10] MEDS: ENOXAPARIN 30 MG/0.3 ML SYR SQ SCH (08:22)
--- NOTE | 2017-07-10 09:09 | Clinical Documentation Query ---
Dr. MARTIN, CLAFLIN : CLINICAL DOCUMENTATION QUERY Patient is a 61 year old male who underwent left BKA for PVD of the left lower extremity. Preoperative BUN, creatinine, and estimated GFR were 39 mg/dl, 1.83 mg/dl, and 39 ml/min. Values two weeks prior were 27 mg/dl, 1.30 mg/dl, and 59 ml/min. Please clarify as clinically appropriate. Thank you. In your clinical opinion is this patient being managed for: ( ) FARTUN on CKD stage 3 ( ) Not Agree ( ) Other explanation of clinical findings (Please Explain) ( ) Unable to determine (Please Define) ( ) Need to Discuss The medical record reflects the following clinical findings, treatment, and risk factors. Clinical Indicators: As above Treatment: Serial chemistries Risk Factors: Age, hypertension, diabetes Please clarify and document your clinical opinion in the progress notes and discharge summary. Terms such as "probable", "suspected", "likely", "questionable", "possible", or "still to be ruled out" are acceptable. IF IN AGREEMENT, YOU MUST DOCUMENT ABOVE DIAGNOSTIC STATEMENT IN DAILY PROGRESS NOTES AND DISCHARGE SUMMARY. This document is not part of the patient's record. Thank You, Rashel Mo, [place] [phone]
--- NOTE | 2017-07-10 09:37 | Progress Note ---
Progress Note Date of Service: Jul 10, 2017. Subjective 61 yo m with multiple medical problems, POD #3 after LLE BKA, seen in f/u today. Pt admits pain in LLE, but denies any other complaints. Per RN, pt refusing pain medication as well as other meds. Objective Vital Signs Vital Signs Past 12 Hours Date Time Temp Pulse Resp B/P (MAP) Pulse Ox O2 Delivery O2 Flow Rate FiO2 07/10/17 07:58 36.8 93 20 118/72 (87) 93 Room Air 07/10/17 03:34 37.1 89 16 98/64 (75) 95 Room Air 07/09/17 23:55 Room Air 07/09/17 22:53 37.1 93 16 119/76 (90) 94 Room Air Exam CONST: A&O x3, NAD, chronically ill appearing male CHEST: RRR, lungs decreased, but ctab ABD: soft, nontender, + bs x 4 quad EXT: LLE BKA site C/D/I with lemuel, Mild edema, no necrosis or erythema noted. + tenderness and contracture. Laboratory and Microbiology Results Past 24 Hours Test 07/09/17 12:14 07/09/17 16:56 07/09/17 20:19 07/10/17 04:44 Range/Units Bedside Glucose 161 183 180 70-99 mg/dl ASSESSMENT and PLAN: s/p LLE BKA Severe LLE PAD with rest pain Pt doing generally well post op. D/C to [facility] today. Will see in office in 2 weeks.
[2017-07-10] MEDS ORDERED: ULT50X PO (09:38)
--- NOTE | 2017-07-10 09:42 | Discharge Instructions ---
Discharge Instructions Date of Service Jul 10, 2017. Admission Reason for Admission: Ischemic Rest Pain Left Leg Discharge Discharge Diagnosis / Problem: Post Left Leg Below Knee Amputation, Left Leg ischemic rest pain Discharge Goals Goal(s): Decrease discomfort, Therapeutic intervention Activity Recommendations Activity Limitations: per Instructions/Follow-up section . Instructions / Follow-Up Instructions / Follow-Up May shower, no bathing. Keep wound clean and dry, no dressing required. Follow up with Dr Mckeon or Nahomy Rico PA-C in 2 wks for staple removal. Call [phone] for appt. Current Hospital Diet Patient's current hospital diet: AHA Diet (Heart Healthy), Diabetes Type 2 Diet Discharge Diet Recommended Diet: AHA Diet (Heart Healthy), Diabetes Type 2 Diet Procedures Procedures Performed: Left Below the Knee Amputation Pending Studies Studies pending at discharge: no Laboratory Results Hemoglobin A1c Test 06/10/17 10:56 Range/Units Estimated Average Glucose 154 mg/dl Hemoglobin A1c 7.0 H 4.5-5.6 % Medical Emergencies . Who to Call and When: Medical Emergencies: If at any time you feel your situation is an emergency, please call 911 immediately. . Non-Emergent Contact Non-Emergency issues call your: Primary Care Provider . "Provider Documentation" section prepared by Nahomy Rico. . VTE Core Measure Inpt VTE Proph given/why not?: Enoxaparin (Lovenox) [place] Drug Monitoring Program Search Results: patient reviewed within database, no issues identified
[2017-07-10 11:58] VITALS: BP 118/72; PULSE 93; TEMP 36.8; O2SAT 93
[2017-07-10] MEDS: TRAMADOL HCL 50 MG TAB PO PRN (12:56)
[2017-07-10] MEDS ORDERED: MoRPHine SULFATE 2 MG/ML CARP IV ONE (16:00)
[2017-07-14] MEDS ORDERED: HYDR2TAB48 PO (09:06)
[2017-07-14] MEDS ORDERED: NF656 TOP (09:06)
--- NOTE | 2017-07-14 11:47 | DISCHARGE SUMMARY ---
SUPERVISING PHYSICIAN: Davin Mckeon MD ADMISSION DIAGNOSIS: Peripheral vascular disease of the left lower extremity with rest pain. DISCHARGE DIAGNOSES: 1. Status post left lower extremity [id number] amputation. 2. Severe peripheral arterial disease with rest pain of the left lower extremity. DISCHARGE CONDITION: Stable. CONSULTATIONS IN THE HOSPITAL: Included none. PROCEDURES WHILE IN THE HOSPITAL: Included his left lower extremity below the knee amputation, which was performed on 07/07/2017 with an EBL of 150 mL and no significant complications. HISTORY OF PRESENT ILLNESS: Mr. Liu is a 61-year-old male with a history of heart disease, hypertension, diabetes, peripheral vascular disease, carotid disease and mental handicap who presented to our office for evaluation of severe left lower extremity pain. Ultrasound had indicated severe arterial disease and he was recommended to undergo arteriography for verification. During the angiography procedure, the patient did undergo TANYARD WORKER of some of the distal vessels; however, he had severe infrapopliteal disease which excluded him from candidacy for bypass procedure. The patient continued to have severe left lower extremity pain even after his angiography and was recommended to consider undergoing a below the knee amputation to alleviate his pain. HOSPITAL COURSE: The patient was admitted on 07/07/2017 after undergoing his left lower extremity [id number] amputation. The patient remained essentially stable postoperatively. He refused further blood draws. His vital signs remained stable. He was somewhat belligerent and uncooperative with nursing staff, which is not unusual for him. He was finally able to obtain a bed at [facility] on postop day #3. PHYSICAL EXAMINATION: VITAL SIGNS: On day of discharge, his vital signs were as follows: A temperature of 36.8, pulse of 93, respiratory rate of 20, blood pressure 118/72, pulse oximetry of 93% on room air. CONSTITUTIONAL AND GENERAL: The patient is a chronically ill appearing, ill kept, uncooperative elderly male in no acute distress. He was nonambulatory and in bed due to his BKA. HEAD: Normocephalic and atraumatic. EYES: EOMI. ENMT: Exam demonstrated no hearing loss, rhinorrhea or pharyngeal erythema. NECK: Supple, nontender with a midline trachea without masses or crepitus. LUNGS: Exam demonstrated no dyspnea. They were decreased throughout but clear bilaterally. CARDIOVASCULAR: Demonstrated nondisplaced apical impulse with a regular rate and rhythm without murmurs, lifts, heaves, thrills or gallops. Peripheral pulses are full and equal in all extremities unless otherwise noted, specifically they were normal in his carotid, brachial, and radial pulses. His left femoral pulse is +2. His right femoral pulse is +2. His right lower extremity distal pulses are nonpalpable. He does have brisk capillary refill to his right toes and no signs of distal ischemia in the right leg. ABDOMEN: Soft, nontender with normoactive bowel sounds in all 4 quadrants without guarding or rebound. There was no flank or CVA tenderness. MUSCULOSKELETAL: Demonstrated normal tone and strength for age excluding his right lower extremity BKA site. Upper extremities demonstrate no cyanosis, edema, clubbing, varicosities or ulcers. The patient's left lower extremity BKA surgical site appears to be well approximated with lemuel and healing appropriately. There is minimal edema. He does appear to have a knee contracture, which he refuses to straighten out or to allow staff to straighten due to pain. Pain level appears to be controlled on medications unless the wound is being touched or moved. There is no erythema, ecchymosis or discharge from the area. DIET UPON DISCHARGE: Should be a low cholesterol, diabetic AHA diet. MEDICATIONS UPON DISCHARGE: Reconciled on the chart and are as per his discharge instructions. FOLLOWUP: Should be with Dr. Mckeon or his PA Nahomy Rico within 2-3 weeks for reevaluation and removal of lemuel. The patient was advised to call with any other questions.
== END 2017-07-10 14:01 | DRG 240 ==
LOC: C.ACU 09:47 → C.MSN 10:09 → ENRESERV 15:13
PROVIDERS: ADMIT Surgery Vascular Surgery; ATTEND Surgery Vascular Surgery
PROC: 0Y6J0Z2 Detachment at Left Lower Leg, Mid, Open Approach (ICD-10-PCS; principal; 2017-07-04)
DX: E11.51 Type 2 diabetes mellitus with diabetic peripheral angiopathy without gangrene (principal); T82.898A Other specified complication of vascular prosthetic devices, implants and grafts, initial encounter; I73.9 Peripheral vascular disease, unspecified; I25.10 Atherosclerotic heart disease of native coronary artery without angina pectoris; Z79.82 Long term (current) use of aspirin; I10 Essential (primary) hypertension; F17.210 Nicotine dependence, cigarettes, uncomplicated; Y83.2 Surgical operation with anastomosis, bypass or graft as the cause of abnormal reaction of the patient, or of later complication, without mention of misadventure at the time of the procedure; Y92.019 Unspecified place in single-family (private) house as the place of occurrence of the external cause

== ENCOUNTER → 2017-07-19 | Outpatient (CLI) | payer OTHER ==
[~2017-07-19] MED LIST changes: +HYDR2TAB48 PO; -LACTATED RINGER'S 1000ML 1,000 ML IV SCH; +NF656 TOP; -SODIUM CHLORIDE 0.9% 1000ML 1,000 ML IV SCH; +ULT50X PO
== END | disposition home or self-care (01) ==
LOC: C.RDSM 10:00
PROVIDERS: ATTEND Orthopaedic Surgery Sports Medicine
DX: M25.562 Pain in left knee (principal)

== ENCOUNTER 2017-08-03 12:32 | Inpatient (IN) | payer OTHER ==
[~2017-08-03] VITALS: Ht 167.6 cm; Wt 82.0 kg
--- NOTE | 2017-08-03 10:31 | History and Physical ---
History & Physical Date of Service Aug 03, 2017. History & Physical CC: Left leg infected BKA stump HPI: Mr. Liu had a left BKA performed which looked good after surgery. He subsequently had what appeared to be pressure necrosis of the stump from a cast used on his stump. He now requires an AKA. ALLERGIES: AZITHROMYCIN, CODEINE AND PERCOGESIC AND SIMVASTATIN. MEDICATIONS: Include aspirin, Celexa, Coreg, Lantus, Lipitor, metformin, Neurontin, Plavix, and Protonix. PAST MEDICAL HISTORY: Positive for heart disease, hypertension, diabetes, peripheral vascular occlusive disease and carotid disease. PAST SURGUICAL HISTORY: Includes all the above-mentioned vascular procedures. SOCIAL HISTORY: He smokes 1 pack a day for over 25 years and continues to smoke. He does not drink. REVIEW OF SYSTEMS: Ten systems are reviewed. It is positive findings were intolerance to heat and cold, heartburn, loss of appetite and occasional diarrhea. Also, easy bruisability, and the other positive findings are in the history of present illness. PHYSICAL EXAMINATION: The patient is awake, oriented x3. His blood pressure was 116/80 in the left, 98/72 in the right, heart rate was 92. Head and neck within normal limits. Bilateral carotid bruits. Lungs clear. Heart: Regular rate and rhythm. Abdominal exam is benign. I do not appreciate an aneurysmal dilatation of the aorta. Vascular exam of his lower extremity reveals a femoral pulse of +2 on the right, +1 on the left. I cannot appreciate pedal pulses in the right foot. There is an open necrotic left BKA stump He does have significant decreased capillary refill in the right. The right foot is discolored and has a purplish hue to it. No ulcerations are seen in either foot. Neurologic exam is grossly intact. Impression: Left lower extremity open necrotic BKA stump PLAN AND RECMMENDATIONS: Patient is admitted for a left AKA. I have discussed the risks options and benefits of the procedure with the patient. The patient understands the risks options and benefits and agrees to the procedure.
[~2017-08-03 12:32] MED LIST changes: +ATROPINE SULFATE 0.1 MG/ML 5ML SYR IV PRN; +CEFAZOLIN 1000MG IV PUSH 5 ML IV SCH; +EpHEDrine SULFATE INJ 50 MG/ML AMP IV PRN; +LACTATED RINGER'S 1000ML 1,000 ML IV SCH; +ONDANSETRON INJ 2 MG/ML 2 ML VIAL IV PRN; +SODIUM CHLORIDE 0.9% 1000ML 1,000 ML IV SCH
[2017-08-03] MEDS ORDERED: MIDAZOLAM HCL 1 MG/ML 2ML VIAL ONE (12:49)
[2017-08-03] MEDS ORDERED: FENTANYL CITRATE INJ 50 MCG/1 ML 2 ML VIAL ONE ×3 (12:50→16:41)
[2017-08-03 13:29] VITALS: Ht 167.6 cm; Wt 82.0 kg
[2017-08-03] MEDS ORDERED: HYDROmorphone INJ 0.5 MG/0.5 ML SYR IV ONE (13:45)
[2017-08-03 14:02] LABS: PTT PATIENT 25.9 SECONDS (21.0-31.0)
[2017-08-03] MEDS ORDERED: KETAMINE HCL INJ 50 MG/ML 10 ML VIAL ONE (16:04)
[2017-08-03] MEDS ORDERED: ROCURONIUM BROMIDE 10 MG/ML 5 ML VIAL IV ONE (16:23)
[2017-08-03] MEDS ORDERED: LIDOCAINE 2% 20 MG/ML 5ML SYR IV ONE (16:23)
[2017-08-03] MEDS ORDERED: ONDANSETRON INJ 2 MG/ML 2 ML VIAL ONE (16:23)
[2017-08-03] MEDS ORDERED: PROPOFOL IV EMULSION 10 MG/ML 20 ML VIAL IV ONE (16:23)
[2017-08-03] MEDS ORDERED: HYDROmorphone INJ 1 MG/ML SYR IV PRN (17:00)
[2017-08-03] MEDS ORDERED: FENTANYL CITRATE INJ 50 MCG/1 ML 2 ML VIAL IV PRN (17:00)
[2017-08-03] MEDS ORDERED: ONDANSETRON INJ 2 MG/ML 2 ML VIAL IV PRN (17:00)
--- NOTE | 2017-08-03 17:04 | [facility] Post Operative Brief Note ---
Immediate Operative Summary Operative Date Aug 03, 2017. Pre-Operative Diagnosis Left lower extremity open necrotic below knee amputation stump Post-Operative Diagnosis Left lower extremity open necrotic below knee amputation stump Procedure(s) Performed left above knee amputation Surgeon Dr. Davin Mckeon Healthcare Liaison Surgeon(s) none Estimated Blood Loss 100ML Findings good bleeding, viable muscle Specimens A: Left above knee amputation Anesthesia Gen Complication(s) None Disposition Recovery Room / PACU
[2017-08-03] MEDS ORDERED: HYDROmorphone INJ 1 MG/ML SYR ONE (17:09)
[2017-08-03] MEDS ORDERED: LORAZEPAM 2 MG/ML 1 ML VIAL ONE (17:13)
[2017-08-03] MEDS ORDERED: GLUCOSE 10 TABS/TUBE PO PRN (17:15)
[2017-08-03] MEDS ORDERED: GLUCOSE 40% GEL 15 GM TUBE PO PRN (17:15)
[2017-08-03] MEDS ORDERED: GLUCAGON FOR INJ 1 MG VIAL SQ PRN (17:15)
[2017-08-03] MEDS ORDERED: DEXTROSE 50% 50 ML SYR IV PRN (17:15)
[2017-08-03] MEDS ORDERED: QUETIAPINE FUMARATE 25 MG TAB PO PRN (17:15)
[2017-08-03] MEDS ORDERED: ACETAMINOPHEN 325 MG TAB PO PRN (17:15)
[2017-08-03 18:00] VITALS: BP 101/64; PULSE 109; TEMP 35.9; O2SAT 92
--- NOTE | 2017-08-03 18:09 | Anesthesiology Progress Note ---
Anesthesia Post Op Note Date & Time Aug 03, 2017 at 17:51 Vital Signs Pain Intensity: 0.0 Vital Signs Past 12 Hours Date Time Temp Pulse Resp B/P (MAP) Pulse Ox O2 Delivery O2 Flow Rate FiO2 08/03/17 17:45 95 16 108/72 95 Room Air 08/03/17 17:35 36.6 97 16 102/71 95 Room Air 08/03/17 17:25 103 16 126/76 94 Room Air 08/03/17 17:15 101 16 130/67 Room Air 08/03/17 17:05 99 16 137/105 96 Room Air 08/03/17 16:58 36.5 90 16 138/96 100 Oxymask 10 Notes Mental Status: alert / awake / arousable, participated in evaluation Pt Amnestic to Procedure: Yes Nausea / Vomiting: adequately controlled Pain: adequately controlled Airway Patency, RR, SpO2: stable & adequate BP & HR: stable & adequate Hydration State: stable & adequate Anesthetic Complications: no major complications apparent Anesthetic Complications: In PACU, patient attempting to remove dressing from wound and get out of bed. He was refusing monitors, BG checks, and yelling at staff. Given 1 mg of ativan with good response. Patient tolerated intermittent vital checks while in PACU and was hemodynamically stable throughout. Towards end of PACU stay patient was threatening staff with physical harm and trying to bite. Patient grabbing at staff and trying to kick. Decision made to place soft arm restraints to ensure the safety of patient and those around him. Floor personally notified of patient and his aggression by myself. Dr. Mckeon was also informed of the situation. Order placed for one on one to assist with keeping patient safe on the floor.
[2017-08-03] MEDS: GABAPENTIN 100 MG CAP PO SCH ×2 (18:38→21:57)
[2017-08-03] MEDS ORDERED: LORAZEPAM INJ 1 MG in SYRINGE 0.5 ML IV ONE (18:45)
[2017-08-03 19:43] VITALS: BP 103/68; PULSE 108; TEMP 36.4; O2SAT 95
[2017-08-03] MEDS ORDERED: LIDODERM (LIDOCAINE) PATCH 5% TD SCH (20:00)
--- NOTE | 2017-08-03 20:31 | OPERATIVE REPORT ---
DATE OF OPERATION: 08/03/2017 PREOPERATIVE DIAGNOSIS: Gangrene under the left below knee amputation stump. POSTOPERATIVE DIAGNOSIS: Same. PROCEDURE: Left above knee amputation. SURGEON: Davin Mckeon MD. ANESTHETIC: General. PROCEDURE INDICATIONS: The patient is a 61-year-old gentleman who had a below knee amputation. He subsequently developed gangrene from what appeared to be pressure necrosis of the distal stump over the incision anteriorly. From this he developed a contracture. Above knee amputation was recommended. He understood the risks, options and benefits and agreed to have this procedure. OPERATION AND FINDINGS: The patient was taken to the operating room and placed in supine position. After the left leg and stump were prepped and draped in a sterile manner, a fish mouth incision was made around the lower thigh. The anterior muscles were divided with electrocautery. The bone was then transected in the mid portion approximately 5-6 cm above the incision line. The amputation knife was used to perform the posterior flap. Bleeding was controlled using free ties. After adequate hemostasis was noted, the wound was closed by anastomosing the anterior to posterior fascia with 3-0 Vicryl sutures. The muscle covered the bone very nicely. The skin edges were then approximated using the stapling device. Sterile dressings were applied to the wound and patient left the operating room in satisfactory condition and tolerated the procedure well. I attest to the content of the Intraoperative Record and any orders documented therein. Any exception s are noted below.
[2017-08-03] MEDS: SULFACETAMIDE SODIUM 10% OP SOLN 15 ML BTL OPL SCH (21:57)
[2017-08-03] MEDS: TAMSULOSIN HCL 0.4 MG CAP PO SCH (21:57)
[2017-08-03] MEDS: QUETIAPINE FUMARATE 100 MG TAB PO SCH (21:57)
[2017-08-03] MEDS: CARVEDILOL 12.5 MG TAB PO SCH (21:57)
[2017-08-03] MEDS: ATORVASTATIN 40 MG TAB PO SCH (21:57)
[2017-08-03] MEDS: CEFAZOLIN IV 1,000 MG in SYRINGE 0 ML IV SCH (21:57)
[2017-08-03] MEDS: HYDROmorphone HCL 2 MG TAB PO SCH (21:57)
[2017-08-03] MEDS: PANTOprazole SOD 40 MG TAB PO SCH (21:57)
[2017-08-03] MEDS: INSULIN HUMAN REGULAR SC SCH (21:58)
[2017-08-03] MEDS ORDERED: HALOPERIDOL LACTATE 5 MG/ML 1 ML VIAL IM STA (22:15)
[2017-08-03] MEDS ORDERED: LORAZEPAM INJ 1 MG in SYRINGE 0.5 ML IV PRN (22:15)
[2017-08-03] MEDS ORDERED: HALOPERIDOL LACTATE 5 MG/ML 1 ML VIAL ONE (22:19)
--- NOTE | 2017-08-03 22:32 | Medical Consult ---
Consultation Date of Consultation: Aug 03, 2017. Attending Physician: Davin Mckeon M.D. Reason for Consultation: Delirium management History of Present Illness Mr Chente Liu is a 61 year old male with hypertension, diabetes, heart disease , severe peripheral vascular disease, who is day 0 s/p left AKA by Dr. Mckeon. He previously had a BKA, but the stump became necrotic, and so today he had an AKA. Post-operatively, he became very aggressive and violent and was pulling out all lines and dressings. Decision was made to place him in restraints. He was provided with a one to one and brought back to the floors. Upon meeting him, he remains agitated and is constantly yelling. I am unable to have meaningful conversation with him or perform an exam on him. Past Medical/Surgical History Medical Problems: (1) CAD (coronary artery disease) (2) Depression (3) Diabetes mellitus (4) gangrene left below knee amputation stump (5) Hypertension (6) Ischemic pain of left foot (7) Rest pain of left upper extremity due to atherosclerosis Surgical Problems: (1) Status post below knee amputation of left lower extremity (2) S/P AKA of L leg Family History No pertinent FHx Social History Per admission H&P, patient does not drink alcohol. Smokes 1 pack per day as he has for many years. Smoking Status: Current Some Day Smoker Allergies Coded Allergies: Oxycodone (Verified Allergy, Severe, HIVES, 08/03/17) Azithromycin (Verified Allergy, Unknown, HIVES, 08/03/17) Codeine (Verified Allergy, Unknown, HIVES, 08/03/17) Erythromycin (Verified Allergy, Unknown, HIVES, 08/03/17) Phenyltoloxamine (Verified Allergy, Unknown, HIVES, 08/03/17) Simvastatin (Verified Allergy, Unknown, hives, 08/03/17) HAND WRITTEN ON PRE-OP ORDER PLEASE CONFIRM ALLERGY Home Medications Reported Home Medications Medications Dose Route/Sig Max Daily Dose Days Date Category Dilaudid (Hydromorphone Hcl) 2 Mg Tab 2 Mg PO Q4 07/14/17 Reported Lidoderm Patch 5% (Lidocaine) 1 Ea Tdsy 1 Appl TOP ONAMOFFPM 07/14/17 Reported Tramadol HCl 50 Mg Tab 100 Mg PO Q4H PRN 07/10/17 Rx Neurontin (Gabapentin) 100 Mg Cap 200 Mg PO HS 07/07/17 Reported Flomax (Tamsulosin Hcl) 0.4 Mg Cap 0.4 Mg PO HS 06/29/17 Reported Bleph-10 (Sulfacetamide Sodium (Ophth)) 10 % Trini 1 Drops OPL QID 06/29/17 Reported Neurontin (Gabapentin) 100 Mg Cap 100 Mg PO TIDM 06/29/17 Reported Seroquel (Quetiapine Fumarate) 25 Mg Tab 25 Mg PO QAM PRN 06/09/17 Reported Lantus (Insulin Glargine) 100 Unit/Ml Inj 40 SC QPM 06/09/17 Reported Aspirin 81 (Aspirin) 81 Mg Tab QAM 06/09/17 Reported Glucophage (Metformin Hcl) 1,000 Mg Tab 1,000 Mg PO BID 06/09/17 Reported Protonix (Pantoprazole Sodium) 40 Mg Tab 40 Mg PO BID 06/09/17 Reported Seroquel (Quetiapine Fumarate) 100 Mg Tab 100 Mg PO HS 06/09/17 Reported Plavix (Clopidogrel Bisulfate) 75 Mg Tab 2 Tab PO QAM 06/09/17 Reported Zestril (Lisinopril) 20 Mg Tab 20 Mg PO QAM 06/09/17 Reported Coreg (Carvedilol) 12.5 Mg Tab 1 Tab PO BID 90 06/09/17 Reported Lipitor (Atorvastatin Calcium) 80 Mg Tab 80 Mg PO HS 06/09/17 Reported Zoloft (Sertraline Hcl) 50 Mg Tab 50 Mg PO QAM 06/09/17 Reported Current Inpatient Medications Current Inpatient Medications Medications (Trade) Dose Ordered Sig/Fadia Route Start Time Stop Time Status Last Admin Dose Admin Sodium Chloride 1,000 ml @ 50 mls/hr Q20H IV 08/03/17 06:00 08/04/17 01:59 Lactated Ringer's 1,000 ml @ 15 mls/hr Q24H IV 08/03/17 06:00 08/04/17 05:59 08/03/17 13:04 15 MLS/HR Insulin Human Regular (novoLIN-R) SLIDING SCALE IF C... ACHS SC 08/03/17 21:00 09/02/17 20:59 Glucose (Glucose 40% Gel) 15-30 GRAMS 15 GRAMS... UD PRN PO 08/03/17 17:15 1/6/18 17:14 Glucose (Glucose Chew Tab) 4-8 Tablets 4 Tabl... UD PRN PO 08/03/17 17:15 09/02/17 17:14 Dextrose (Dextrose 50% 50ML Syringe) 25-50ML OF 50% DW IV FOR... UD PRN IV 08/03/17 17:15 09/02/17 17:14 Glucagon (Glucagon Inj) 1 mg UD PRN SQ 08/03/17 17:15 09/02/17 17:14 Acetaminophen (Tylenol Tab) 650 mg Q4H PRN PO 08/03/17 17:15 09/02/17 17:14 Cefazolin Sodium 1000 mg/Syringe 5 ml @ 2.5 mls/min Q8H IV 08/03/17 20:00 08/04/17 04:01 Enoxaparin Sodium (Lovenox Inj) 30 mg Q12H SQ 08/04/17 20:00 09/03/17 19:59 Aspirin (Ecotrin Tab) 81 mg QAM PO 08/04/17 09:00 09/03/17 08:59 Atorvastatin Calcium (Lipitor Tab) 80 mg HS PO 08/03/17 21:00 09/02/17 20:59 Carvedilol (Coreg Tab) 12.5 mg BID PO 08/03/17 21:00 09/02/17 20:59 Clopidogrel Bisulfate (plAVix TAB) 150 mg QAM PO 08/04/17 09:00 09/03/17 08:59 Gabapentin (Neurontin Cap) 100 mg TIDM PO 08/03/17 18:00 09/02/17 17:59 Gabapentin (Neurontin Cap) 200 mg HS PO 08/03/17 21:00 09/02/17 20:59 Hydromorphone HCl (Dilaudid Tab) 2 mg Q4H PO 08/03/17 20:00 08/17/17 19:59 Lisinopril (Zestril Tab) 20 mg QAM PO 08/04/17 09:00 09/03/17 08:59 Metformin HCl (Glucophage Tab) 1,000 mg BIDM PO 08/04/17 08:30 09/03/17 08:29 Pantoprazole Sodium (Protonix Tab) 40 mg BID PO 08/03/17 21:00 09/02/17 20:59 Quetiapine Fumarate (seroQUEL TAB) 25 mg QAM PRN PO 08/03/17 17:15 09/02/17 17:14 Quetiapine Fumarate (seroQUEL TAB) 100 mg HS PO 08/03/17 21:00 09/02/17 20:59 Sertraline HCl (Zoloft Tab) 50 mg QAM PO 08/04/17 09:00 09/03/17 08:59 Sulfacetamide Sodium (Sulfacetamide Sod 10% Oph Soln) 1 drops QID OPL 08/03/17 21:00 09/02/17 20:59 Tamsulosin HCl (Flomax Cap) 0.4 mg HS PO 08/03/17 21:00 09/02/17 20:59 Tramadol HCl (Ultram Tab) 100 mg Q4H PRN PO 08/03/17 17:15 09/02/17 17:14 Lidocaine (Lidoderm Patch 5%) 1 patch DAILY@0800 TD 08/04/17 08:00 09/03/17 07:59 Miscellaneous (Remove Lidoderm Patch) 1 ea DAILY@2000 N/A 08/04/17 20:00 09/03/17 19:59 Lorazepam 1 mg/ Syringe 1 ml @ 0.5 mls/min Q2H PRN IV 08/03/17 22:15 09/02/17 22:14 Morphine Sulfate (MoRPHine SULFATE INJ) 4 mg Q4H PRN IV 08/03/17 22:15 08/17/17 22:14 Review of Systems Unable to obtain ROS due to altered mental status. Physical Exam Date Time Temp Pulse Resp B/P (MAP) Pulse Ox O2 Delivery O2 Flow Rate FiO2 08/03/17 19:43 36.4 108 16 103/68 (80) 95 Room Air 08/03/17 17:45 95 16 108/72 95 Room Air 08/03/17 17:35 36.6 97 16 102/71 95 Room Air 08/03/17 17:25 103 16 126/76 94 Room Air 08/03/17 17:15 101 16 130/67 Room Air 08/03/17 17:05 99 16 137/105 96 Room Air 08/03/17 16:58 36.5 90 16 138/96 100 Oxymask 10 Unable to perform physical examination on patient. From bedside examination, he appears acutely distressed. He is yelling coherently. He has a bloody dressing to the L leg. Laboratory Results Last 24 Hours Test 08/03/17 12:47 08/03/17 13:21 08/03/17 17:21 08/03/17 19:45 Bedside Glucose 172 mg/dl 152 mg/dl 199 mg/dl Prothrombin Time 11.0 SECONDS Prothromb Time International Ratio 1.0 Activated Partial Thromboplast Time 25.9 SECONDS Partial Thromboplastin Ratio 1.0 Assessment & Plan 61 yo M, day 0 s/p L BKA with acute delirium - ddx is post-anesthesia, withdrawal of antipsychotics, pain, infection. At this point, I am unable to gather a meaningful history of perform an examination. We will provide another dose of Ativan as well as Haldol IM since he is not accepting IV or PO pain medications. I will make morphine available as an IV option. Thank you for this consult, we will continue to follow. Resident Physician Supervision Note: Pt evaluated independently. I discussed the case with the resident and agree with the findings and plan as documented in the note. Any exceptions or clarifications are listed here: 61 y/o M DM tobacco use - severe PVD - post L AKA - pt became delirious and aggressive post-op. He is unable to provide meaningful info at present - received Haldol and Ativan - Pt is calm at time of my evaluation. OE He responds to all questions with a "no" AAO x 1 S1,2 R CTAB NT, ND L AKA P: We have provided an antipsychotic and a sedative and placeed the pt on 1:1 obs - he is presently calm We will reassess AM as we suspect this is post-op delirium possibly due to anesthesia Documented By: Juan Fermin Resident Tracking Resident Involvement: Resident Care Provided Care Provided: Adult Hospital Medicine
[2017-08-03 23:20] VITALS: BP 101/63; PULSE 117; TEMP 36.8; O2SAT 94
[2017-08-04] MEDS: HYDROmorphone HCL 2 MG TAB PO SCH ×7 (00:17→23:51)
[2017-08-04] MEDS: LORAZEPAM INJ 1 MG in SYRINGE 0.5 ML IV STA ×2 (02:22→03:56)
[2017-08-04] MEDS: CEFAZOLIN IV 1,000 MG in SYRINGE 0 ML IV SCH (03:58)
[2017-08-04 07:11] VITALS: BP 120/73; PULSE 139; TEMP 36.7; O2SAT 98
[2017-08-04] MEDS: LIDODERM (LIDOCAINE) PATCH 5% TD SCH (07:58)
[2017-08-04] MEDS: GABAPENTIN 100 MG CAP PO SCH ×4 (08:40→21:00)
[2017-08-04] MEDS: METFORMIN HCL 500 MG TAB PO SCH ×2 (08:40→17:45)
--- NOTE | 2017-08-04 08:41 | Anesthesiology Progress Note ---
Anesthesia Post Op Note Date & Time Aug 04, 2017 at 08:40 Vital Signs Pain Intensity: 8.0 Vital Signs Past 12 Hours Date Time Temp Pulse Resp B/P (MAP) Pulse Ox O2 Delivery O2 Flow Rate FiO2 08/04/17 07:11 36.7 139 18 120/73 (89) 98 Room Air 08/04/17 00:15 Room Air 08/03/17 23:20 36.8 117 16 101/63 (76) 94 Room Air Notes Mental Status: alert / awake / arousable, participated in evaluation Pt Amnestic to Procedure: Yes Nausea / Vomiting: adequately controlled Pain: adequately controlled Airway Patency, RR, SpO2: stable & adequate BP & HR: stable & adequate Hydration State: stable & adequate Anesthetic Complications: no major complications apparent
[2017-08-04] MEDS: SULFACETAMIDE SODIUM 10% OP SOLN 15 ML BTL OPL SCH ×4 (08:42→21:00)
[2017-08-04] MEDS: CARVEDILOL 12.5 MG TAB PO SCH ×2 (08:42→21:00)
[2017-08-04] MEDS: SERTRALINE HCL 50 MG TAB PO SCH (08:43)
[2017-08-04] MEDS: ASPIRIN 81 MG ECTAB PO SCH (08:48)
[2017-08-04] MEDS: CLOPIDOGREL BISULFATE 75 MG TAB PO SCH (08:48)
[2017-08-04] MEDS: PANTOprazole SOD 40 MG TAB PO SCH ×2 (08:48→21:00)
[2017-08-04 08:50] LABS: BASO % 0.1 %; BASO ABS # 0.02 K/uL (0-0.2); HEMATOCRIT 29.5 % (42-52); HEMOGLOBIN 9.8 g/dL (14.0-18.0); LYMPH % 6.1 %; LYMPH ABS # 1.28 K/uL (1.2-3.4); MEAN CELL VOLUME 83.8 fL (80-100); MEAN CORPUSCULAR HEMOGLOBIN 27.8 pg (25-34); MEAN CORPUSCULAR HGB CONC 33.2 g/dl (32-36); MEAN PLATELET VOLUME 10.9 fL (7.4-10.4); MONO % 8.8 %; MONO ABS # 1.85 K/uL (0.11-0.59); NEUT % 84.5 %; NEUT ABS # 17.75 K/uL (1.4-6.5); PLATELET COUNT 414 K/uL (130-400); RED CELL DISTRIBUTION WIDTH CV 13.3 % (11.5-14.5); RED CELL DISTRIBUTION WIDTH SD 40.7 fL (36.4-46.3)
[2017-08-04] MEDS: INSULIN HUMAN REGULAR SC SCH ×4 (08:58→23:49)
[2017-08-04] MEDS ORDERED: LISINOPRIL 20 MG TAB PO SCH (09:00)
--- NOTE | 2017-08-04 10:40 | Progress Note ---
Progress Note Date of Service: Aug 04, 2017. Subjective 61 yo m with multiple medical problems, POD #1 after LLE AKA performed d/t necrotic BKA, seen in f/u today. Pt has been very uncooperative with staff and is restrained for his own safety. Has been yelling out and combative, removing dressing and attempting to bite staff when they attempt to replace it. Pt also receiving haldol and ativan. Objective Vital Signs Vital Signs Past 12 Hours Date Time Temp Pulse Resp B/P (MAP) Pulse Ox O2 Delivery O2 Flow Rate FiO2 08/04/17 08:00 Room Air 08/04/17 07:11 36.7 139 18 120/73 (89) 98 Room Air 08/04/17 00:15 Room Air 08/03/17 23:20 36.8 117 16 101/63 (76) 94 Room Air Exam CONST: A&O x3, combative and uncooperative for exam CHEST: unable to examine ABD: unable to examine EXT: LLE AKA site oozing blood from lateral end of incision, lemuel in place, appears dry other than lateral side. + edema, mild ecchymosis, tenderness Laboratory and Microbiology Results Past 24 Hours Test 08/03/17 12:47 08/03/17 13:21 08/03/17 17:21 08/03/17 19:45 Range/Units Bedside Glucose 172 152 199 70-99 mg/dl Prothrombin Time 11.0 9.0-12.0 SECONDS Prothromb Time International Ratio 1.0 0.9-1.1 Activated Partial Thromboplast Time 25.9 21.0-31.0 SECONDS Partial Thromboplastin Ratio 1.0 Test 08/04/17 08:32 Range/Units White Blood Count 21.00 4.8-10.8 K/uL Red Blood Count 3.52 4.7-6.1 M/uL Hemoglobin 9.8 14.0-18.0 g/dL Hematocrit 29.5 42-52 % Mean Corpuscular Volume 83.8 80-100 fL Mean Corpuscular Hemoglobin 27.8 25-34 pg Mean Corpuscular Hemoglobin Concent 33.2 32-36 g/dl Platelet Count 414 130-400 K/uL Mean Platelet Volume 10.9 7.4-10.4 fL Neutrophils (%) (Auto) 84.5 % Lymphocytes (%) (Auto) 6.1 % Monocytes (%) (Auto) 8.8 % Eosinophils (%) (Auto) 0.0 % Basophils (%) (Auto) 0.1 % Neutrophils # (Auto) 17.75 1.4-6.5 K/uL Lymphocytes # (Auto) 1.28 1.2-3.4 K/uL Monocytes # (Auto) 1.85 0.11-0.59 K/uL Eosinophils # (Auto) 0.00 0-0.5 K/uL Basophils # (Auto) 0.02 0-0.2 K/uL RDW Standard Deviation 40.7 36.4-46.3 fL RDW Coefficient of Variation 13.3 11.5-14.5 % Immature Granulocyte % (Auto) 0.5 % Immature Granulocyte # (Auto) 0.10 0.00-0.02 K/uL Microbiology Results 08/03/17 MRSA DNA Surveillance Screen - Final, Complete Specimen Negative for MRSA by DNA Probe ASSESSMENT and PLAN: s/p LLE AKA Necrotic BKA Pt is uncooperative at baseline, however, is not typically combative. He is mentally challenged, but does appear to have worsened confusion, possibly d/ t anesthesia vs medication. Assisted nursing with linen change and dressing replacement, pt appears calmer.
--- NOTE | 2017-08-04 11:48 | Hospitalist Progress Note ---
Hospitalist Progress Note Date of Service Aug 04, 2017. Subjective Pt evaluation today including: conversation w/ patient, physical exam, lab review, review of studies, review of inpatient medication list Patient in restraints. Sleeping but easily wakes. Stated no to any complaints/pains. Pulling at LLE wound dressing. ROS cannot be completed secondary to mental status. Per sitter at bedside- vascular surgery just placed wound dressing- did not have on over night because he kept pulling at it. Currently doing well but still confused/agitated. Medications Current Inpatient Medications Medications (Trade) Dose Ordered Sig/Fadia Route Start Time Stop Time Status Last Admin Dose Admin Insulin Human Regular (novoLIN-R) SLIDING SCALE IF C... ACHS SC 08/03/17 21:00 09/02/17 20:59 08/04/17 08:58 5 UNITS Glucose (Glucose 40% Gel) 15-30 GRAMS 15 GRAMS... UD PRN PO 08/03/17 17:15 09/02/17 17:14 Glucose (Glucose Chew Tab) 4-8 Tablets 4 Tabl... UD PRN PO 08/03/17 17:15 09/02/17 17:14 Dextrose (Dextrose 50% 50ML Syringe) 25-50ML OF 50% DW IV FOR... UD PRN IV 08/03/17 17:15 09/02/17 17:14 Glucagon (Glucagon Inj) 1 mg UD PRN SQ 08/03/17 17:15 09/02/17 17:14 Acetaminophen (Tylenol Tab) 650 mg Q4H PRN PO 08/03/17 17:15 09/02/17 17:14 Enoxaparin Sodium (Lovenox Inj) 30 mg Q12H SQ 08/04/17 20:00 09/03/17 19:59 Aspirin (Ecotrin Tab) 81 mg QAM PO 08/04/17 09:00 09/03/17 08:59 Atorvastatin Calcium (Lipitor Tab) 80 mg HS PO 08/03/17 21:00 09/02/17 20:59 Carvedilol (Coreg Tab) 12.5 mg BID PO 08/03/17 21:00 09/02/17 20:59 08/04/17 08:42 12.5 MG Clopidogrel Bisulfate (plAVix TAB) 150 mg QAM PO 08/04/17 09:00 09/03/17 08:59 08/04/17 08:48 75 MG Gabapentin (Neurontin Cap) 100 mg TIDM PO 08/03/17 18:00 09/02/17 17:59 08/04/17 08:40 100 MG Gabapentin (Neurontin Cap) 200 mg HS PO 08/03/17 21:00 09/02/17 20:59 Hydromorphone HCl (Dilaudid Tab) 2 mg Q4H PO 08/03/17 20:00 08/17/17 19:59 08/04/17 07:53 2 MG Lisinopril (Zestril Tab) 20 mg QAM PO 08/04/17 09:00 09/03/17 08:59 08/04/17 08:43 20 MG Metformin HCl (Glucophage Tab) 1,000 mg BIDM PO 08/04/17 08:30 09/03/17 08:29 08/04/17 08:40 1,000 MG Pantoprazole Sodium (Protonix Tab) 40 mg BID PO 08/03/17 21:00 09/02/17 20:59 Quetiapine Fumarate (seroQUEL TAB) 25 mg QAM PRN PO 08/03/17 17:15 09/02/17 17:14 Quetiapine Fumarate (seroQUEL TAB) 100 mg HS PO 08/03/17 21:00 09/02/17 20:59 Sertraline HCl (Zoloft Tab) 50 mg QAM PO 08/04/17 09:00 09/03/17 08:59 08/04/17 08:43 50 MG Sulfacetamide Sodium (Sulfacetamide Sod 10% Oph Soln) 1 drops QID OPL 08/03/17 21:00 09/02/17 20:59 08/04/17 08:42 1 DROPS Tamsulosin HCl (Flomax Cap) 0.4 mg HS PO 08/03/17 21:00 09/02/17 20:59 Tramadol HCl (Ultram Tab) 100 mg Q4H PRN PO 08/03/17 17:15 09/02/17 17:14 Lidocaine (Lidoderm Patch 5%) 1 patch DAILY@0800 TD 08/04/17 08:00 09/03/17 07:59 08/04/17 07:58 1 PATCH Miscellaneous (Remove Lidoderm Patch) 1 ea DAILY@1999 N/A 08/04/17 20:00 09/03/17 19:59 Lorazepam 1 mg/ Syringe 1 ml @ 0.5 mls/min Q2H PRN IV 08/03/17 22:15 09/02/17 22:14 08/04/17 08:37 0.5 MLS/MIN Morphine Sulfate (MoRPHine SULFATE INJ) 4 mg Q4H PRN IV 08/03/17 22:15 08/17/17 22:14 Objective Vital Signs Date Time Temp Pulse Resp B/P (MAP) Pulse Ox O2 Delivery O2 Flow Rate FiO2 08/04/17 08:00 Room Air 08/04/17 07:11 36.7 139 18 120/73 (89) 98 Room Air 08/04/17 00:15 Room Air 08/03/17 23:20 36.8 117 16 101/63 (76) 94 Room Air 08/03/17 19:43 36.4 108 16 103/68 (80) 95 Room Air 08/03/17 18:00 35.9 109 18 101/64 (76) 92 Room Air 08/03/17 18:00 Room Air 08/03/17 18:00 Room Air 08/03/17 17:45 95 16 108/72 95 Room Air 08/03/17 17:35 36.6 97 16 102/71 95 Room Air 08/03/17 17:25 103 16 126/76 94 Room Air 08/03/17 17:15 101 16 130/67 Room Air 08/03/17 17:05 99 16 137/105 96 Room Air 08/03/17 16:58 36.5 90 16 138/96 100 Oxymask 10 Physical Exam General Appearance: no apparent distress Eyes: PERRL ENT: hearing grossly normal Neck: supple Respiratory/Chest: lungs clear, no respiratory distress, no accessory muscle use Cardiovascular: regular rate, rhythm Abdomen: normal bowel sounds, non tender, soft Extremities: no pedal edema, no calf tenderness, + pertinent finding (L AKA, dressing C/D/I) Neurologic/Psychiatric: alert, + disoriented Skin: normal color, warm/dry, no rash Laboratory Results Last 24 Hours Test 08/03/17 12:47 08/03/17 13:21 08/03/17 17:21 08/03/17 19:45 Bedside Glucose 172 mg/dl 152 mg/dl 199 mg/dl Prothrombin Time 11.0 SECONDS Prothromb Time International Ratio 1.0 Activated Partial Thromboplast Time 25.9 SECONDS Partial Thromboplastin Ratio 1.0 Test 08/04/17 08:07 08/04/17 08:32 Bedside Glucose 260 mg/dl White Blood Count 21.00 K/uL Red Blood Count 3.52 M/uL Hemoglobin 9.8 g/dL Hematocrit 29.5 % Mean Corpuscular Volume 83.8 fL Mean Corpuscular Hemoglobin 27.8 pg Mean Corpuscular Hemoglobin Concent 33.2 g/dl Platelet Count 414 K/uL Mean Platelet Volume 10.9 fL Neutrophils (%) (Auto) 84.5 % Lymphocytes (%) (Auto) 6.1 % Monocytes (%) (Auto) 8.8 % Eosinophils (%) (Auto) 0.0 % Basophils (%) (Auto) 0.1 % Neutrophils # (Auto) 17.75 K/uL Lymphocytes # (Auto) 1.28 K/uL Monocytes # (Auto) 1.85 K/uL Eosinophils # (Auto) 0.00 K/uL Basophils # (Auto) 0.02 K/uL RDW Standard Deviation 40.7 fL RDW Coefficient of Variation 13.3 % Immature Granulocyte % (Auto) 0.5 % Immature Granulocyte # (Auto) 0.10 K/uL Assessment and Plan Mr. 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 s/p left AKA by Dr. Mckeon on 08/03: - Surgical management, pain management, PT/OT, and DVT prophylaxis as per primary team - Follow postop CBC and PRP Acute delirium postop: - Continue supportive care - IV Ativan PRN for agitation, limit use to avoid added confusion Heart disease, PAD, HTN: Continue Lipitor 80 mg daily, Coreg 12.5 mg BID, ASA 81 mg daily, Plavix 150 mg daily, Lisinopril 20 mg daily T2DM, neuropathy: - Continue Metformin 1000 mg BID and Lantus 40 u SQ HS - BSG ACHS and ISS - Gabapentin 200 mg HS, 100 mg TID Depression: Zoloft 50 mg daily, Seroquel 100 mg HS and 25 mg QAM PRN BPH: Flomax 0.4 mg HS GERD: Protonix 40 mg BID DVT prophylaxis: Lovenox SQ BID as per surgical team Code Status: LEVEL I, FULL Dispo: As per primary team
[2017-08-04 20:50] VITALS: BP 68/55; PULSE 115
[2017-08-04] MEDS: TAMSULOSIN HCL 0.4 MG CAP PO SCH (21:00)
[2017-08-04] MEDS ORDERED: INSULIN GLARGINE SOLOSTAR 100 UNITS/ML 3 ML PEN SC SCH (21:00)
[2017-08-04] MEDS: QUETIAPINE FUMARATE 100 MG TAB PO SCH (21:00)
[2017-08-04] MEDS: ATORVASTATIN 40 MG TAB PO SCH (21:00)
[2017-08-04] MEDS ORDERED: NURSING VERBAL MED ORDER ONE ×2 (21:45→23:15)
[2017-08-04] MEDS ORDERED: SODIUM CHLORIDE 0.9% 1000ML 1,000 ML IV ONE ×2 (22:00→23:30)
[2017-08-04 23:07] VITALS: BP 76/49; PULSE 110; TEMP 36.4; O2SAT 95
[2017-08-04] MEDS: ENOXAPARIN 30 MG/0.3 ML SYR SQ SCH (23:31)
[2017-08-04] MEDS: INSULIN GLARGINE SOLOSTAR 100 UNITS/ML 3 ML PEN SC SCH (23:50)
[2017-08-05] VITALS (19 sets, daily range): BP systolic 69–117; BP diastolic 41–75; PULSE 84–115; TEMP 36.6–37.6; O2SAT 92–99
[2017-08-05] MEDS ORDERED: NURSING VERBAL MED ORDER ONE ×2 (00:45→23:15)
[2017-08-05] MEDS: SODIUM CHLORIDE 0.9% 1000ML 1,000 ML IV SCH ×3 (01:02→19:58)
[2017-08-05] MEDS: HYDROmorphone HCL 2 MG TAB PO SCH ×6 (02:57→23:31)
[2017-08-05] MEDS: MoRPHine SULFATE 4 MG/ML 1 ML CARP\\VIAL IV PRN (04:59)
[2017-08-05 07:03] LABS: CALCIUM 7.9 mg/dl (8.5-10.1); CREATININE 2.91 mg/dl (0.60-1.40); POTASSIUM 5.2 mmol/L (3.5-5.1)
[2017-08-05] MEDS: TRAMADOL HCL 50 MG TAB PO PRN (07:04)
[2017-08-05 07:59] LABS: HEMOGLOBIN 7.4 g/dL (14.0-18.0); MEAN CELL VOLUME 83.9 fL (80-100); MEAN CORPUSCULAR HGB CONC 32.2 g/dl (32-36); MEAN PLATELET VOLUME 10.4 fL (7.4-10.4); PLATELET COUNT 356 K/uL (130-400); RED CELL DISTRIBUTION WIDTH CV 13.8 % (11.5-14.5); RED CELL DISTRIBUTION WIDTH SD 42.3 fL (36.4-46.3); WHITE BLOOD COUNT 22.66 K/uL (4.8-10.8)
[2017-08-05] MEDS: INSULIN HUMAN REGULAR SC SCH ×4 (08:00→21:00)
[2017-08-05] MEDS: CLOPIDOGREL BISULFATE 75 MG TAB PO SCH (08:03)
[2017-08-05] MEDS: CARVEDILOL 12.5 MG TAB PO SCH ×2 (08:03→21:57)
[2017-08-05] MEDS: METFORMIN HCL 500 MG TAB PO SCH ×2 (08:03→17:41)
[2017-08-05] MEDS: SERTRALINE HCL 50 MG TAB PO SCH (08:03)
[2017-08-05] MEDS: ASPIRIN 81 MG ECTAB PO SCH (08:04)
[2017-08-05] MEDS: SULFACETAMIDE SODIUM 10% OP SOLN 15 ML BTL OPL SCH ×6 (08:04→21:56)
[2017-08-05] MEDS: PANTOprazole SOD 40 MG TAB PO SCH ×2 (08:04→21:58)
[2017-08-05] MEDS: ENOXAPARIN 30 MG/0.3 ML SYR SQ SCH ×2 (08:04→20:01)
[2017-08-05] MEDS: LIDODERM (LIDOCAINE) PATCH 5% TD SCH (08:05)
[2017-08-05] MEDS: GABAPENTIN 100 MG CAP PO SCH ×4 (08:05→21:57)
[2017-08-05 08:22] LABS: BASO % 0.1 %; BASO ABS # 0.02 K/uL (0-0.2); LYMPH ABS # 2.27 K/uL (1.2-3.4); MONO ABS # 2.26 K/uL (0.11-0.59); NEUT % 79.5 %; NEUT ABS # 18.01 K/uL (1.4-6.5)
--- NOTE | 2017-08-05 10:34 | Progress Note ---
Progress Note Date of Service: Aug 05, 2017. Subjective Sleepy, arousable Objective Vital Signs Vital Signs Past 12 Hours Date Time Temp Pulse Resp B/P (MAP) Pulse Ox O2 Delivery O2 Flow Rate FiO2 08/05/17 07:50 Room Air 08/05/17 06:45 36.7 115 17 108/63 (78) 92 Room Air 08/05/17 05:00 110 117/75 (89) 08/05/17 00:33 110 92/50 (64) 08/04/17 23:55 Room Air 08/04/17 23:07 36.4 110 18 76/49 (58) 95 Room Air Exam Afebrile. VSS Stump incision clean and dry. Laboratory and Microbiology Results Past 24 Hours Test 08/04/17 12:31 08/04/17 16:58 08/04/17 20:42 08/05/17 05:15 Range/Units Bedside Glucose 173 206 206 70-99 mg/dl Sodium Level 138 136-145 mmol/L Potassium Level 5.2 3.5-5.1 mmol/L Chloride Level 108 98-107 mmol/L Carbon Dioxide Level 20 21-32 mmol/L Anion Gap 10.0 3-11 mmol/L Blood Urea Nitrogen 54 7-18 mg/dl Creatinine 2.91 0.60-1.40 mg/dl Est Creatinine Clear Calc Drug Dose 27.1 ml/min Estimated GFR () 25.9 Estimated GFR (Non- 22.4 BUN/Creatinine Ratio 18.6 10-20 Random Glucose 121 70-99 mg/dl Calcium Level 7.9 8.5-10.1 mg/dl Test 08/05/17 07:40 08/05/17 08:21 Range/Units White Blood Count 22.66 4.8-10.8 K/uL Red Blood Count 2.74 4.7-6.1 M/uL Hemoglobin 7.4 14.0-18.0 g/dL Hematocrit 23.0 42-52 % Mean Corpuscular Volume 83.9 80-100 fL Mean Corpuscular Hemoglobin 27.0 25-34 pg Mean Corpuscular Hemoglobin Concent 32.2 32-36 g/dl Platelet Count 356 130-400 K/uL Mean Platelet Volume 10.4 7.4-10.4 fL Neutrophils (%) (Auto) 79.5 % Lymphocytes (%) (Auto) 10.0 % Monocytes (%) (Auto) 10.0 % Eosinophils (%) (Auto) 0.0 % Basophils (%) (Auto) 0.1 % Neutrophils # (Auto) 18.01 1.4-6.5 K/uL Lymphocytes # (Auto) 2.27 1.2-3.4 K/uL Monocytes # (Auto) 2.26 0.11-0.59 K/uL Eosinophils # (Auto) 0.00 0-0.5 K/uL Basophils # (Auto) 0.02 0-0.2 K/uL RDW Standard Deviation 42.3 36.4-46.3 fL RDW Coefficient of Variation 13.8 11.5-14.5 % Immature Granulocyte % (Auto) 0.4 % Immature Granulocyte # (Auto) 0.10 0.00-0.02 K/uL Echinocytes 1+ Bedside Glucose 150 70-99 mg/dl Imp: Post AKA Plan: Patient can go to rehab/NH when bed available
--- NOTE | 2017-08-05 13:13 | Progress Note ---
Subjective Date of Service: Aug 05, 2017. Subjective Pt evaluation today including: conversation w/ patient, physical exam, chart review, lab review, review of studies, review of inpatient medication list Resting comfortably in bed Somnolent Difficult to arouse Still on 1:1 Review of Systems Unable to obtain Difficult to arouse Agitated this AM Objective Vital Signs Date Time Temp Pulse Resp B/P (MAP) Pulse Ox O2 Delivery O2 Flow Rate FiO2 08/05/17 07:50 Room Air 08/05/17 06:45 36.7 115 17 108/63 (78) 92 Room Air 08/05/17 05:00 110 117/75 (89) 08/05/17 00:33 110 92/50 (64) 08/04/17 23:55 Room Air 08/04/17 23:07 36.4 110 18 76/49 (58) 95 Room Air 08/04/17 20:50 115 68/55 (59) 08/04/17 16:50 Room Air Physical Exam General Appearance: WD/WN, no apparent distress Eyes: normal inspection, PERRL, EOMI, sclerae normal Neck: supple, no adenopathy, thyroid normal, no JVD Respiratory/Chest: chest non-tender, lungs clear, normal breath sounds, no respiratory distress Cardiovascular: regular rate, rhythm, no edema, no gallop, no JVD Abdomen: normal bowel sounds, non tender, soft, no organomegaly Extremities: normal range of motion, non-tender, normal inspection, no pedal edema Laboratory Results Last 24 Hours Test 08/04/17 16:58 08/04/17 20:42 08/05/17 05:15 08/05/17 07:40 Bedside Glucose 206 mg/dl 206 mg/dl Sodium Level 138 mmol/L Potassium Level 5.2 mmol/L Chloride Level 108 mmol/L Carbon Dioxide Level 20 mmol/L Anion Gap 10.0 mmol/L Blood Urea Nitrogen 54 mg/dl Creatinine 2.91 mg/dl Est Creatinine Clear Calc Drug Dose 27.1 ml/min Estimated GFR () 25.9 Estimated GFR (Non- 22.4 BUN/Creatinine Ratio 18.6 Random Glucose 121 mg/dl Calcium Level 7.9 mg/dl White Blood Count 22.66 K/uL Red Blood Count 2.74 M/uL Hemoglobin 7.4 g/dL Hematocrit 23.0 % Mean Corpuscular Volume 83.9 fL Mean Corpuscular Hemoglobin 27.0 pg Mean Corpuscular Hemoglobin Concent 32.2 g/dl Platelet Count 356 K/uL Mean Platelet Volume 10.4 fL Neutrophils (%) (Auto) 79.5 % Lymphocytes (%) (Auto) 10.0 % Monocytes (%) (Auto) 10.0 % Eosinophils (%) (Auto) 0.0 % Basophils (%) (Auto) 0.1 % Neutrophils # (Auto) 18.01 K/uL Lymphocytes # (Auto) 2.27 K/uL Monocytes # (Auto) 2.26 K/uL Eosinophils # (Auto) 0.00 K/uL Basophils # (Auto) 0.02 K/uL RDW Standard Deviation 42.3 fL RDW Coefficient of Variation 13.8 % Immature Granulocyte % (Auto) 0.4 % Immature Granulocyte # (Auto) 0.10 K/uL Echinocytes 1+ Test 08/05/17 08:21 08/05/17 11:55 08/05/17 12:41 08/05/17 13:00 Bedside Glucose 150 mg/dl 157 mg/dl Assessment and Plan Mr. 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 S/P left AKA by Dr. Mckeon on 08/03: - Surgical management, pain management, PT/OT, and DVT prophylaxis as per primary team - Follow postop CBC and PRP FARTUN - Increase IVF at this time, repeat PRP Acute delirium postop: - Continue supportive care - IV Ativan PRN for agitation, limit use to avoid added confusion Heart disease, PAD, HTN: Continue Lipitor 80 mg daily, Coreg 12.5 mg BID, ASA 81 mg daily, Plavix 150 mg daily, Lisinopril 20 mg daily T2DM, neuropathy: - Continue Metformin 1000 mg BID and Lantus 40 u SQ HS - BSG ACHS and ISS - Gabapentin 200 mg HS, 100 mg TID Depression: Zoloft 50 mg daily, Seroquel 100 mg HS and 25 mg QAM PRN BPH: Flomax 0.4 mg HS GERD: Protonix 40 mg BID DVT prophylaxis: Lovenox SQ BID as per surgical team Code Status: LEVEL I, FULL Dispo: As per primary team
[2017-08-05 14:10] LABS: HEMATOCRIT 20.8 % (42-52); HEMOGLOBIN 6.9 g/dL (14.0-18.0)
[2017-08-05 14:18] LABS: CALCIUM 7.8 mg/dl (8.5-10.1); CREATININE 2.45 mg/dl (0.60-1.40)
[2017-08-05] MEDS: INSULIN GLARGINE SOLOSTAR 100 UNITS/ML 3 ML PEN SC SCH (21:00)
[2017-08-05] MEDS: TAMSULOSIN HCL 0.4 MG CAP PO SCH (21:57)
[2017-08-05] MEDS: ATORVASTATIN 40 MG TAB PO SCH (21:57)
[2017-08-05] MEDS: QUETIAPINE FUMARATE 100 MG TAB PO SCH (21:58)
[2017-08-06] VITALS (25 sets, daily range): BP systolic 69–130; BP diastolic 47–78; PULSE 97–108; TEMP 36.8–37.3; O2SAT 91–98
[2017-08-06] MEDS ORDERED: SODIUM CHLORIDE 0.9% 500ML 500 ML IV ONE (00:15)
[2017-08-06 00:23] LABS: HEMATOCRIT 28.2 % (42-52); HEMOGLOBIN 9.4 g/dL (14.0-18.0)
[2017-08-06] MEDS ORDERED: NURSING VERBAL MED ORDER ONE ×2 (01:00→03:15)
[2017-08-06] MEDS ORDERED: SODIUM CHLORIDE 0.9% 1000ML 1,000 ML IV ONE (01:30)
[2017-08-06] MEDS: SODIUM CHLORIDE 0.9% 1000ML 1,000 ML IV SCH (03:11)
[2017-08-06] MEDS: HYDROmorphone HCL 2 MG TAB PO SCH ×7 (03:35→23:44)
--- NOTE | 2017-08-06 06:08 | DIAGNOSTIC IMAGING REPORT ---
CHEST ONE VIEW PORTABLE HISTORY: 61 years-old Male r/o chf acute shortness of breath COMPARISON: Chest radiographs 06/29/2017 TECHNIQUE: Portable chest FINDINGS: Cardiac silhouette is upper limits of normal. Prior median sternotomy. Surgical clips project over the left neck and left mediastinal margin. Fractured superior most sternotomy wire redemonstrated. There is no pneumothorax or pleural effusion. There is mild pulmonary vascular congestion without overt pulmonary edema. Linear subsegmental left basilar opacities are noted. Portable Atherosclerotic plaquing of the right carotid bulb. Degenerative changes of the left shoulder and spine. IMPRESSION: 1. Mild pulmonary vascular congestion without overt pulmonary edema. 2. Linear subsegmental left basilar opacities suggest atelectasis. The above report was generated using voice recognition software. It may contain grammatical, syntax or spelling errors. Electronically signed by: Dano Yepez M.D. 08/06/2017 6:07 AM Dictated Date/Time: 08/06/2017 6:05 AM
[2017-08-06 07:09] LABS: HEMATOCRIT 27.8 % (42-52); HEMOGLOBIN 9.2 g/dL (14.0-18.0); MEAN CELL VOLUME 84.5 fL (80-100); MEAN CORPUSCULAR HGB CONC 33.1 g/dl (32-36); MEAN PLATELET VOLUME 10.3 fL (7.4-10.4); PLATELET COUNT 272 K/uL (130-400); RED CELL DISTRIBUTION WIDTH CV 13.7 % (11.5-14.5); RED CELL DISTRIBUTION WIDTH SD 41.5 fL (36.4-46.3); WHITE BLOOD COUNT 13.93 K/uL (4.8-10.8)
[2017-08-06 07:46] LABS: CREATININE 1.38 mg/dl (0.60-1.40)
[2017-08-06 08:11] LABS: CALCIUM 7.7 mg/dl (8.5-10.1); CREATININE 1.45 mg/dl (0.60-1.40); POTASSIUM 4.4 mmol/L (3.5-5.1)
[2017-08-06] MEDS: SULFACETAMIDE SODIUM 10% OP SOLN 15 ML BTL OPL SCH ×5 (09:00→20:27)
[2017-08-06] MEDS: CLOPIDOGREL BISULFATE 75 MG TAB PO SCH (09:11)
[2017-08-06] MEDS: GABAPENTIN 100 MG CAP PO SCH ×4 (09:11→20:27)
[2017-08-06] MEDS: PANTOprazole SOD 40 MG TAB PO SCH ×2 (09:11→20:26)
[2017-08-06] MEDS: SERTRALINE HCL 50 MG TAB PO SCH (09:11)
[2017-08-06] MEDS: ENOXAPARIN 30 MG/0.3 ML SYR SQ SCH ×2 (09:12→20:28)
[2017-08-06] MEDS: METFORMIN HCL 500 MG TAB PO SCH ×2 (09:12→17:53)
[2017-08-06] MEDS: LIDODERM (LIDOCAINE) PATCH 5% TD SCH (09:13)
[2017-08-06] MEDS: INSULIN HUMAN REGULAR SC SCH ×5 (09:15→20:28)
[2017-08-06] MEDS: ASPIRIN 81 MG ECTAB PO SCH (09:15)
--- NOTE | 2017-08-06 10:12 | Progress Note ---
Progress Note Date of Service: Aug 06, 2017. Subjective Denies any pain Objective Vital Signs Vital Signs Past 12 Hours Date Time Temp Pulse Resp B/P (MAP) Pulse Ox O2 Delivery O2 Flow Rate FiO2 08/06/17 09:08 105 16 97/65 (76) 08/06/17 07:55 98 16 117/71 (86) 08/06/17 07:30 98 Room Air 08/06/17 06:55 100 16 101/65 (77) 96 08/06/17 06:00 100 100/65 (77) 08/06/17 05:05 100 99/65 (76) 96 Nasal Cannula 2.0 08/06/17 04:00 101 102/54 (70) 95 Room Air 2.0 08/06/17 03:02 100 18 97/61 (73) 93 Nasal Cannula 2.0 08/06/17 02:39 99 18 91/55 (67) 95 Nasal Cannula 2.0 08/06/17 02:18 99 18 97/53 (68) 95 Nasal Cannula 2.0 08/06/17 02:00 97 18 92/61 (71) 96 Nasal Cannula 2.0 08/06/17 01:41 97 18 92/60 (71) 96 Nasal Cannula 2.0 08/06/17 01:22 97 18 84/57 (66) 95 Nasal Cannula 2.0 08/06/17 01:11 99 18 82/55 (64) 91 Room Air 08/06/17 01:01 100 87/56 (66) 08/06/17 00:49 37.3 102 18 73/47 (56) 95 Room Air 08/06/17 00:40 108 69/47 (54) 08/05/17 23:34 83/57 (66) 08/05/17 23:15 98 Room Air 08/05/17 22:50 37.3 108 18 80/47 (58) 98 Room Air 08/05/17 22:48 69/41 (50) Exam Awake alert Stump dry and clean BP improved. H/H better after transfusion Laboratory and Microbiology Results Past 24 Hours Test 08/05/17 11:55 08/05/17 13:31 08/05/17 17:01 08/05/17 20:39 Range/Units Bedside Glucose 157 153 125 70-99 mg/dl Hemoglobin 6.9 14.0-18.0 g/dL Hematocrit 20.8 42-52 % Sodium Level 138 136-145 mmol/L Potassium Level 5.0 3.5-5.1 mmol/L Chloride Level 110 98-107 mmol/L Carbon Dioxide Level 19 21-32 mmol/L Anion Gap 9.0 3-11 mmol/L Blood Urea Nitrogen 51 7-18 mg/dl Creatinine 2.45 0.60-1.40 mg/dl Est Creatinine Clear Calc Drug Dose 32.2 ml/min Estimated GFR () 31.9 Estimated GFR (Non- 27.6 BUN/Creatinine Ratio 20.8 10-20 Random Glucose 143 70-99 mg/dl Calcium Level 7.8 8.5-10.1 mg/dl Test 08/06/17 00:14 08/06/17 06:55 08/06/17 07:52 Range/Units Hemoglobin 9.4 9.2 14.0-18.0 g/dL Hematocrit 28.2 27.8 42-52 % White Blood Count 13.93 4.8-10.8 K/uL Red Blood Count 3.29 4.7-6.1 M/uL Mean Corpuscular Volume 84.5 80-100 fL Mean Corpuscular Hemoglobin 28.0 25-34 pg Mean Corpuscular Hemoglobin Concent 33.1 32-36 g/dl RDW Standard Deviation 41.5 36.4-46.3 fL RDW Coefficient of Variation 13.7 11.5-14.5 % Platelet Count 272 130-400 K/uL Mean Platelet Volume 10.3 7.4-10.4 fL Sodium Level 141 136-145 mmol/L Potassium Level 4.4 3.5-5.1 mmol/L Chloride Level 111 98-107 mmol/L Carbon Dioxide Level 21 21-32 mmol/L Anion Gap 9.0 3-11 mmol/L Blood Urea Nitrogen 36 7-18 mg/dl Creatinine 1.45 0.60-1.40 mg/dl Est Creatinine Clear Calc Drug Dose 54.5 ml/min Estimated GFR () 60.2 Estimated GFR (Non- 52.0 BUN/Creatinine Ratio 24.9 10-20 Random Glucose 134 70-99 mg/dl Calcium Level 7.7 8.5-10.1 mg/dl Bedside Glucose 146 70-99 mg/dl Imp: Post AKA Plan: Patient doing better. Plan on d/c tomorrow if bed available.
[2017-08-06 14:59] LABS: HEMATOCRIT 27.8 % (42-52); HEMOGLOBIN 9.3 g/dL (14.0-18.0)
--- NOTE | 2017-08-06 15:06 | Progress Note ---
Subjective Date of Service: Aug 06, 2017. Subjective Pt evaluation today including: conversation w/ patient, physical exam, chart review, lab review, review of studies, review of inpatient medication list Problem List Resting comfortably in bed Delirium resolved No distress noted Review of Systems Constitutional: No fever, No chills, No sweats, No weakness ENT: No hearing loss, No unusual epistaxis, No nasal symptoms, No sore throat Respiratory: No cough, No sputum, No wheezing, No shortness of breath Cardiac: No chest pain, No orthopnea, No PND, No edema Abdomen: No pain, No nausea, No vomiting, No diarrhea, No constipation Musculoskeletal: No joint pain, No muscle pain, No swelling Male : No dysuria, No urinary frequency, No incontinence, No slowing stream Neurologic: No memory loss, No paralysis, No weakness, No numbness/tingling Psychiatric: No depression symptoms, No anhedonism, No anxiety, No insomnia Heme: No abnormal bleeding/bruising, No clotting problems Endo: No fatigue, No excessive thirst Skin: No rash, No itch Objective Vital Signs Date Time Temp Pulse Resp B/P (MAP) Pulse Ox O2 Delivery O2 Flow Rate FiO2 08/06/17 14:56 36.8 104 18 130/78 (95) 95 Room Air 08/06/17 14:10 104 16 130/77 (94) 96 08/06/17 13:04 100 16 123/75 (91) 93 08/06/17 11:58 98 15 117/73 (88) 08/06/17 11:06 99 16 92/55 (67) 08/06/17 10:16 99 16 103/65 (78) 93 Room Air 08/06/17 09:08 105 16 97/65 (76) 08/06/17 07:55 98 16 117/71 (86) 08/06/17 07:30 98 Room Air 08/06/17 06:55 100 16 101/65 (77) 96 08/06/17 06:00 100 100/65 (77) 08/06/17 05:05 100 99/65 (76) 96 Nasal Cannula 2.0 08/06/17 04:00 101 102/54 (70) 95 Room Air 2.0 08/06/17 03:02 100 18 97/61 (73) 93 Nasal Cannula 2.0 08/06/17 02:39 99 18 91/55 (67) 95 Nasal Cannula 2.0 08/06/17 02:18 99 18 97/53 (68) 95 Nasal Cannula 2.0 08/06/17 02:00 97 18 92/61 (71) 96 Nasal Cannula 2.0 08/06/17 01:41 97 18 92/60 (71) 96 Nasal Cannula 2.0 08/06/17 01:22 97 18 84/57 (66) 95 Nasal Cannula 2.0 08/06/17 01:11 99 18 82/55 (64) 91 Room Air 08/06/17 01:01 100 87/56 (66) 08/06/17 00:49 37.3 102 18 73/47 (56) 95 Room Air 08/06/17 00:40 108 69/47 (54) 08/05/17 23:34 83/57 (66) 08/05/17 23:15 98 Room Air 08/05/17 22:50 37.3 108 18 80/47 (58) 98 Room Air 08/05/17 22:48 69/41 (50) 08/05/17 21:50 37.0 109 18 107/64 (78) 99 Room Air 08/05/17 21:18 37.6 107 18 108/67 (81) 92 Room Air 08/05/17 20:48 37.3 108 18 106/69 (81) 93 Room Air 08/05/17 20:34 37.0 107 18 97/55 (69) 94 Room Air 08/05/17 20:14 37.2 84 18 95/59 99 08/05/17 17:55 36.8 106 18 92/57 98 08/05/17 16:55 36.8 103 18 83/53 98 08/05/17 15:55 36.8 103 18 88/57 94 08/05/17 15:30 Room Air 08/05/17 15:25 36.6 108 18 81/51 98 08/05/17 15:10 36.8 101 18 85/56 95 Physical Exam General Appearance: WD/WN, no apparent distress Eyes: normal inspection, PERRL, EOMI, sclerae normal Neck: supple, no adenopathy, thyroid normal, no JVD Respiratory/Chest: chest non-tender, lungs clear, normal breath sounds, no respiratory distress Cardiovascular: regular rate, rhythm, no edema, no gallop, no JVD Abdomen: normal bowel sounds, non tender, soft, no organomegaly Extremities: non-tender, normal inspection, no pedal edema, + pertinent finding (aka noted, incision looks clean) Neurologic/Psychiatric: no motor/sensory deficits, alert, normal mood/affect, oriented x 3 Skin: normal color, warm/dry, no rash Lymphatic: no adenopathy Laboratory Results Last 24 Hours Test 08/05/17 17:01 08/05/17 20:39 08/06/17 00:14 08/06/17 06:55 Bedside Glucose 153 mg/dl 125 mg/dl Hemoglobin 9.4 g/dL 9.2 g/dL Hematocrit 28.2 % 27.8 % White Blood Count 13.93 K/uL Red Blood Count 3.29 M/uL Mean Corpuscular Volume 84.5 fL Mean Corpuscular Hemoglobin 28.0 pg Mean Corpuscular Hemoglobin Concent 33.1 g/dl RDW Standard Deviation 41.5 fL RDW Coefficient of Variation 13.7 % Platelet Count 272 K/uL Mean Platelet Volume 10.3 fL Sodium Level 141 mmol/L Potassium Level 4.4 mmol/L Chloride Level 111 mmol/L Carbon Dioxide Level 21 mmol/L Anion Gap 9.0 mmol/L Blood Urea Nitrogen 36 mg/dl Creatinine 1.45 mg/dl Est Creatinine Clear Calc Drug Dose 54.5 ml/min Estimated GFR () 60.2 Estimated GFR (Non- 52.0 BUN/Creatinine Ratio 24.9 Random Glucose 134 mg/dl Calcium Level 7.7 mg/dl Test 08/06/17 07:52 08/06/17 14:43 Bedside Glucose 146 mg/dl Hemoglobin 9.3 g/dL Hematocrit 27.8 % Assessment and Plan Mr. 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 S/P left AKA by Dr. Mckeon on 08/03: - Surgical management, pain management, PT/OT, and DVT prophylaxis as per primary team - Follow postop CBC and PRP Acute blood loss anemia - Transfused 2 units PRBCs 08/05, Hg stable now Hypotension - Received 3 liters NS overnight, improving FARTUN, improving - Increase IVF at this time, repeat PRP Acute delirium postop: - Continue supportive care - IV Ativan PRN for agitation, limit use to avoid added confusion Heart disease, PAD, HTN: Continue Lipitor 80 mg daily, Coreg 12.5 mg BID, ASA 81 mg daily, Plavix 150 mg daily, Lisinopril 20 mg daily T2DM, neuropathy: - Continue Metformin 1000 mg BID and Lantus 40 u SQ HS - BSG ACHS and ISS - Gabapentin 200 mg HS, 100 mg TID Depression: Zoloft 50 mg daily, Seroquel 100 mg HS and 25 mg QAM PRN BPH: Flomax 0.4 mg HS GERD: Protonix 40 mg BID DVT prophylaxis: Lovenox SQ BID as per surgical team Code Status: LEVEL I, FULL Dispo: As per primary team
[2017-08-06] MEDS: TAMSULOSIN HCL 0.4 MG CAP PO SCH (20:26)
[2017-08-06] MEDS: ATORVASTATIN 40 MG TAB PO SCH (20:26)
[2017-08-06] MEDS: QUETIAPINE FUMARATE 100 MG TAB PO SCH (20:28)
[2017-08-06] MEDS: INSULIN GLARGINE SOLOSTAR 100 UNITS/ML 3 ML PEN SC SCH (20:30)
[2017-08-07] VITALS (7 sets, daily range): BP systolic 116–145; BP diastolic 75–83; PULSE 96–105; TEMP 36.5–37.2; O2SAT 94–97
[2017-08-07] MEDS: HYDROmorphone HCL 2 MG TAB PO SCH ×5 (03:56→19:55)
[2017-08-07] MEDS: SERTRALINE HCL 50 MG TAB PO SCH (08:52)
[2017-08-07] MEDS: ASPIRIN 81 MG ECTAB PO SCH (08:52)
[2017-08-07] MEDS: GABAPENTIN 100 MG CAP PO SCH ×4 (08:53→21:15)
[2017-08-07] MEDS: LIDODERM (LIDOCAINE) PATCH 5% TD SCH (08:53)
[2017-08-07] MEDS: METFORMIN HCL 500 MG TAB PO SCH ×2 (08:54→18:33)
[2017-08-07] MEDS: CLOPIDOGREL BISULFATE 75 MG TAB PO SCH (08:54)
[2017-08-07] MEDS: ENOXAPARIN 30 MG/0.3 ML SYR SQ SCH ×2 (08:56→20:00)
[2017-08-07] MEDS: INSULIN HUMAN REGULAR SC SCH ×4 (09:00→21:35)
[2017-08-07] MEDS: SULFACETAMIDE SODIUM 10% OP SOLN 15 ML BTL OPL SCH ×4 (09:01→21:00)
--- NOTE | 2017-08-07 09:18 | Progress Note ---
Progress Note Date of Service: Aug 07, 2017. Subjective 61 yo m with multiple medical problems, POD #4 after LLE AKA d/t necrosis of BKA , seen in f/u today. Pt admits pain in L leg, denies other complaints. Per staff, pt has been more cooperative. Pt appears more comfortable. Objective Vital Signs Vital Signs Past 12 Hours Date Time Temp Pulse Resp B/P (MAP) Pulse Ox O2 Delivery O2 Flow Rate FiO2 08/07/17 07:55 36.5 96 24 122/80 (94) 96 Room Air 08/07/17 07:30 Room Air 08/07/17 03:52 36.9 102 16 116/75 (89) 94 Room Air 08/06/17 23:30 Room Air 08/06/17 22:55 37.2 103 16 112/70 (84) 94 Room Air 08/06/17 21:17 36.8 100 18 130/78 (95) 96 Room Air Exam CONST: A&O x3, NAD, chronically ill appearing male. mentally handicapped CHEST: RRR lungs decreased,but ctab ABD: soft, nontender, + bs x 4 quad EXT: LLE AKA site C/D/I with lemuel. + local tenderness and edema. No erythema, ecchymosis or discharge Laboratory and Microbiology Results Past 24 Hours Test 08/06/17 12:53 08/06/17 14:43 08/06/17 17:10 08/06/17 20:12 Range/Units Bedside Glucose 92 163 133 70-99 mg/dl Hemoglobin 9.3 14.0-18.0 g/dL Hematocrit 27.8 42-52 % Test 08/07/17 08:03 08/07/17 08:04 08/07/17 08:10 Range/Units Bedside Glucose 109 70-99 mg/dl ASSESSMENT and PLAN: s/p LLE AKA necrosis of LLE BKA Expected post op anemia Pt doing well post op. Anemia stabilized. Pt calmer and more cooperative. Taking meds as prescribed. Ok for transfer to rehab when placement. Discussed with case management.
[2017-08-07] MEDS: PANTOprazole SOD 40 MG TAB PO SCH ×2 (09:46→21:16)
--- NOTE | 2017-08-07 12:49 | Progress Note ---
Subjective Date of Service: Aug 07, 2017. Subjective Pt evaluation today including: conversation w/ patient, physical exam, chart review, lab review, review of studies, review of inpatient medication list Resting in bed comfortably Cooperative with staff No more agitation No acute issues overnight Review of Systems Constitutional: No fever, No chills, No sweats, No weight loss, No weakness ENT: No hearing loss, No unusual epistaxis, No nasal symptoms, No sore throat Respiratory: No cough, No sputum, No wheezing, No shortness of breath Cardiac: No chest pain, No orthopnea, No PND, No edema Abdomen: No pain, No nausea, No vomiting, No diarrhea, No constipation Musculoskeletal: No joint pain, No muscle pain, No swelling, No calf pain Male : No dysuria, No urinary frequency, No incontinence, No nocturia more than once/night Neurologic: No memory loss, No paralysis, No weakness, No numbness/tingling Psychiatric: No depression symptoms, No anxiety, No insomnia Endo: No fatigue, No excessive thirst Skin: No rash, No itch Objective Vital Signs Date Time Temp Pulse Resp B/P (MAP) Pulse Ox O2 Delivery O2 Flow Rate FiO2 08/07/17 12:32 37.0 102 20 130/80 (97) 96 Room Air 08/07/17 09:49 96 Room Air 08/07/17 07:55 36.5 96 24 122/80 (94) 96 Room Air 08/07/17 07:30 Room Air 08/07/17 03:52 36.9 102 16 116/75 (89) 94 Room Air 08/06/17 23:30 Room Air 08/06/17 22:55 37.2 103 16 112/70 (84) 94 Room Air 08/06/17 21:17 36.8 100 18 130/78 (95) 96 Room Air 08/06/17 15:30 Room Air 08/06/17 14:56 36.8 104 18 130/78 (95) 95 Room Air 08/06/17 14:10 104 16 130/77 (94) 96 08/06/17 13:04 100 16 123/75 (91) 93 Physical Exam General Appearance: WD/WN, no apparent distress Eyes: normal inspection, PERRL, EOMI, sclerae normal Neck: supple, no adenopathy, thyroid normal, no JVD Respiratory/Chest: chest non-tender, lungs clear, normal breath sounds, no respiratory distress Cardiovascular: regular rate, rhythm, no edema, no gallop, no JVD Abdomen: normal bowel sounds, non tender, soft, no organomegaly Extremities: normal range of motion, non-tender, normal inspection, no pedal edema Neurologic/Psychiatric: no motor/sensory deficits, alert, normal mood/affect, oriented x 3 Skin: normal color, warm/dry, no rash Lymphatic: no adenopathy Laboratory Results Last 24 Hours Test 08/06/17 12:53 08/06/17 14:43 08/06/17 17:10 08/06/17 20:12 Bedside Glucose 92 mg/dl 163 mg/dl 133 mg/dl Hemoglobin 9.3 g/dL Hematocrit 27.8 % Test 08/07/17 08:03 08/07/17 08:04 08/07/17 08:10 Bedside Glucose 109 mg/dl Assessment and Plan Mr. 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 S/P left AKA by Dr. Mckeon on 08/03: - Surgical management, pain management, PT/OT, and DVT prophylaxis as per primary team - Follow postop CBC and PRP Acute blood loss anemia, back to baseline - Transfused 2 units PRBCs 08/05, Hg stable now Hypotension - Received 3 liters NS overnight, improving FARTUN, improving, awaiting labs - Cont IVF at this time, repeat PRP Acute delirium postop, resolved - Continue supportive care - IV Ativan PRN for agitation, limit use to avoid added confusion Heart disease, PAD, HTN: Continue Lipitor 80 mg daily, Coreg 12.5 mg BID, ASA 81 mg daily, Plavix 150 mg daily, Lisinopril 20 mg daily T2DM, neuropathy: - Continue Metformin 1000 mg BID and Lantus 40 u SQ HS - BSG ACHS and ISS - Gabapentin 200 mg HS, 100 mg TID Depression: Zoloft 50 mg daily, Seroquel 100 mg HS and 25 mg QAM PRN BPH: Flomax 0.4 mg HS GERD: Protonix 40 mg BID DVT prophylaxis: Lovenox SQ BID as per surgical team Code Status: LEVEL I, FULL Dispo: As per primary team
[2017-08-07] MEDS: TRAMADOL HCL 50 MG TAB PO PRN (14:23)
[2017-08-07 15:21] LABS: BASO % 0.4 %; BASO ABS # 0.06 K/uL (0-0.2); EOS % 0.9 %; EOS ABS # 0.14 K/uL (0-0.5); HEMATOCRIT 30.3 % (42-52); HEMOGLOBIN 10.1 g/dL (14.0-18.0); IG# 0.15 K/uL (0.00-0.02); LYMPH ABS # 2.74 K/uL (1.2-3.4); MEAN CELL VOLUME 84.6 fL (80-100); MEAN CORPUSCULAR HEMOGLOBIN 28.2 pg (25-34); MEAN CORPUSCULAR HGB CONC 33.3 g/dl (32-36); MEAN PLATELET VOLUME 10.5 fL (7.4-10.4); MONO % 12.1 %; MONO ABS # 1.85 K/uL (0.11-0.59); NEUT % 67.6 %; NEUT ABS # 10.32 K/uL (1.4-6.5); PLATELET COUNT 315 K/uL (130-400); RED CELL DISTRIBUTION WIDTH CV 13.6 % (11.5-14.5); RED CELL DISTRIBUTION WIDTH SD 41.9 fL (36.4-46.3); WHITE BLOOD COUNT 15.26 K/uL (4.8-10.8)
[2017-08-07 15:32] LABS: CALCIUM 7.8 mg/dl (8.5-10.1); CREATININE 1.19 mg/dl (0.60-1.40); POTASSIUM 4.7 mmol/L (3.5-5.1)
[2017-08-07] MEDS: TAMSULOSIN HCL 0.4 MG CAP PO SCH (21:14)
[2017-08-07] MEDS: ATORVASTATIN 40 MG TAB PO SCH (21:15)
[2017-08-07] MEDS: QUETIAPINE FUMARATE 100 MG TAB PO SCH (21:17)
[2017-08-07] MEDS: INSULIN GLARGINE SOLOSTAR 100 UNITS/ML 3 ML PEN SC SCH (21:40)
[2017-08-08] MEDS: HYDROmorphone HCL 2 MG TAB PO SCH ×7 (00:29→23:59)
[2017-08-08 07:23] VITALS: BP 107/74; PULSE 106; TEMP 37.1; O2SAT 95
[2017-08-08] MEDS: INSULIN HUMAN REGULAR SC SCH ×4 (08:00→20:46)
[2017-08-08 08:33] LABS: BASO % 0.5 %; BASO ABS # 0.07 K/uL (0-0.2); EOS ABS # 0.26 K/uL (0-0.5); HEMATOCRIT 31.6 % (42-52); HEMOGLOBIN 10.6 g/dL (14.0-18.0); IG# 0.08 K/uL (0.00-0.02); LYMPH % 17.2 %; LYMPH ABS # 2.27 K/uL (1.2-3.4); MEAN CELL VOLUME 85.9 fL (80-100); MEAN CORPUSCULAR HEMOGLOBIN 28.8 pg (25-34); MEAN CORPUSCULAR HGB CONC 33.5 g/dl (32-36); MONO % 11.6 %; MONO ABS # 1.53 K/uL (0.11-0.59); NEUT % 68.1 %; NEUT ABS # 8.95 K/uL (1.4-6.5); PLATELET COUNT 314 K/uL (130-400); RED CELL DISTRIBUTION WIDTH CV 13.5 % (11.5-14.5); WHITE BLOOD COUNT 13.16 K/uL (4.8-10.8)
[2017-08-08] MEDS: ENOXAPARIN 30 MG/0.3 ML SYR SQ SCH ×2 (08:41→20:35)
[2017-08-08] MEDS: LIDODERM (LIDOCAINE) PATCH 5% TD SCH (08:42)
[2017-08-08] MEDS: CLOPIDOGREL BISULFATE 75 MG TAB PO SCH (08:42)
[2017-08-08] MEDS: GABAPENTIN 100 MG CAP PO SCH ×4 (08:42→20:37)
[2017-08-08] MEDS: SERTRALINE HCL 50 MG TAB PO SCH (08:42)
[2017-08-08] MEDS: PANTOprazole SOD 40 MG TAB PO SCH ×2 (08:42→20:37)
[2017-08-08] MEDS: SULFACETAMIDE SODIUM 10% OP SOLN 15 ML BTL OPL SCH ×5 (08:43→20:36)
[2017-08-08] MEDS: ASPIRIN 81 MG ECTAB PO SCH (08:43)
[2017-08-08] MEDS: METFORMIN HCL 500 MG TAB PO SCH ×2 (08:43→17:09)
--- NOTE | 2017-08-08 12:43 | Progress Note ---
Progress Note Date of Service: Aug 08, 2017. Subjective 61 yo m POD # 5 after LLE AKA, seen in f/u today. Pt denies complaints other than LLE incision discomfort. Objective Vital Signs Vital Signs Past 12 Hours Date Time Temp Pulse Resp B/P (MAP) Pulse Ox O2 Delivery O2 Flow Rate FiO2 08/08/17 08:00 Room Air 08/08/17 07:23 37.1 106 16 107/74 (85) 95 Room Air Exam CONST: A&O x3, NAD, chronically ill appearing male. mentally handicapped CHEST: RRR lungs decreased,but ctab ABD: soft, nontender, + bs x 4 quad EXT: LLE AKA site C/D/I with lemuel. + local tenderness and edema. No erythema, ecchymosis or discharge Laboratory and Microbiology Results Past 24 Hours Test 08/07/17 14:52 08/07/17 17:03 08/07/17 20:45 08/08/17 08:06 Range/Units White Blood Count 15.26 4.8-10.8 K/uL Red Blood Count 3.58 4.7-6.1 M/uL Hemoglobin 10.1 14.0-18.0 g/dL Hematocrit 30.3 42-52 % Mean Corpuscular Volume 84.6 80-100 fL Mean Corpuscular Hemoglobin 28.2 25-34 pg Mean Corpuscular Hemoglobin Concent 33.3 32-36 g/dl Platelet Count 315 130-400 K/uL Mean Platelet Volume 10.5 7.4-10.4 fL Neutrophils (%) (Auto) 67.6 % Lymphocytes (%) (Auto) 18.0 % Monocytes (%) (Auto) 12.1 % Eosinophils (%) (Auto) 0.9 % Basophils (%) (Auto) 0.4 % Neutrophils # (Auto) 10.32 1.4-6.5 K/uL Lymphocytes # (Auto) 2.74 1.2-3.4 K/uL Monocytes # (Auto) 1.85 0.11-0.59 K/uL Eosinophils # (Auto) 0.14 0-0.5 K/uL Basophils # (Auto) 0.06 0-0.2 K/uL RDW Standard Deviation 41.9 36.4-46.3 fL RDW Coefficient of Variation 13.6 11.5-14.5 % Immature Granulocyte % (Auto) 1.0 % Immature Granulocyte # (Auto) 0.15 0.00-0.02 K/uL Sodium Level 135 136-145 mmol/L Potassium Level 4.7 3.5-5.1 mmol/L Chloride Level 105 98-107 mmol/L Carbon Dioxide Level 23 21-32 mmol/L Anion Gap 7.0 3-11 mmol/L Blood Urea Nitrogen 23 7-18 mg/dl Creatinine 1.19 0.60-1.40 mg/dl Est Creatinine Clear Calc Drug Dose 66.4 ml/min Estimated GFR () 76.5 Estimated GFR (Non- 66.0 BUN/Creatinine Ratio 18.9 10-20 Random Glucose 111 70-99 mg/dl Calcium Level 7.8 8.5-10.1 mg/dl Chemistry Specimen Hemolysis Bedside Glucose 108 109 74 70-99 mg/dl Test 08/08/17 08:09 Range/Units White Blood Count 13.16 4.8-10.8 K/uL Red Blood Count 3.68 4.7-6.1 M/uL Hemoglobin 10.6 14.0-18.0 g/dL Hematocrit 31.6 42-52 % Mean Corpuscular Volume 85.9 80-100 fL Mean Corpuscular Hemoglobin 28.8 25-34 pg Mean Corpuscular Hemoglobin Concent 33.5 32-36 g/dl Platelet Count 314 130-400 K/uL Mean Platelet Volume 10.0 7.4-10.4 fL Neutrophils (%) (Auto) 68.1 % Lymphocytes (%) (Auto) 17.2 % Monocytes (%) (Auto) 11.6 % Eosinophils (%) (Auto) 2.0 % Basophils (%) (Auto) 0.5 % Neutrophils # (Auto) 8.95 1.4-6.5 K/uL Lymphocytes # (Auto) 2.27 1.2-3.4 K/uL Monocytes # (Auto) 1.53 0.11-0.59 K/uL Eosinophils # (Auto) 0.26 0-0.5 K/uL Basophils # (Auto) 0.07 0-0.2 K/uL RDW Standard Deviation 42.0 36.4-46.3 fL RDW Coefficient of Variation 13.5 11.5-14.5 % Immature Granulocyte % (Auto) 0.6 % Immature Granulocyte # (Auto) 0.08 0.00-0.02 K/uL ASSESSMENT and PLAN: s/p LLE AKA Necrotic LLE BKA Severe PAD with rest pain Pt doing well post op. Ok for d/c to rehab when placed.
[2017-08-08 14:07] VITALS: BP 115/75; PULSE 110; TEMP 36.8; O2SAT 97
[2017-08-08 15:25] VITALS: BP 110/60; PULSE 105; TEMP 36.8; O2SAT 96
[2017-08-08] MEDS: TAMSULOSIN HCL 0.4 MG CAP PO SCH (20:36)
[2017-08-08] MEDS: QUETIAPINE FUMARATE 100 MG TAB PO SCH (20:36)
[2017-08-08] MEDS: ATORVASTATIN 40 MG TAB PO SCH (20:38)
[2017-08-08] MEDS: INSULIN GLARGINE SOLOSTAR 100 UNITS/ML 3 ML PEN SC SCH (21:31)
[2017-08-08] MEDS ORDERED: NURSING VERBAL MED ORDER ONE (22:15)
[2017-08-08 22:47] VITALS: BP 129/78; PULSE 100; TEMP 36.8; O2SAT 96
[2017-08-09] MEDS: SODIUM CHLORIDE 0.9% 1000ML 1,000 ML IV SCH ×3 (00:39→23:27)
[2017-08-09] MEDS: HYDROmorphone HCL 2 MG TAB PO SCH ×6 (04:11→23:27)
[2017-08-09 07:47] VITALS: BP 138/78; PULSE 93; TEMP 36.9; O2SAT 96
[2017-08-09] MEDS: INSULIN HUMAN REGULAR SC SCH ×4 (08:00→20:29)
[2017-08-09 08:28] VITALS: O2SAT 96
[2017-08-09] MEDS: ASPIRIN 81 MG ECTAB PO SCH (08:35)
[2017-08-09] MEDS: LIDODERM (LIDOCAINE) PATCH 5% TD SCH (08:35)
[2017-08-09] MEDS: CLOPIDOGREL BISULFATE 75 MG TAB PO SCH (08:35)
[2017-08-09] MEDS: METFORMIN HCL 500 MG TAB PO SCH ×2 (08:36→17:02)
[2017-08-09] MEDS: ENOXAPARIN 30 MG/0.3 ML SYR SQ SCH ×2 (08:36→20:00)
[2017-08-09] MEDS: SULFACETAMIDE SODIUM 10% OP SOLN 15 ML BTL OPL SCH ×4 (08:37→20:26)
[2017-08-09] MEDS: GABAPENTIN 100 MG CAP PO SCH ×4 (08:37→20:21)
[2017-08-09] MEDS: SERTRALINE HCL 50 MG TAB PO SCH (08:37)
[2017-08-09] MEDS: PANTOprazole SOD 40 MG TAB PO SCH ×2 (08:37→20:22)
[2017-08-09 11:36] VITALS: BP 142/80; PULSE 97; TEMP 36.8; O2SAT 97
[2017-08-09] MEDS: TRAMADOL HCL 50 MG TAB PO PRN ×2 (12:05→17:00)
--- NOTE | 2017-08-09 13:43 | Progress Note ---
Progress Note Date of Service: Aug 09, 2017. Subjective 61 yo m with multiple medical problems, POD #6 after LLE AKA, seen in f/u today. Pt doing generally well. Denies any new complaints. Does admit pain in LLE incision. Objective Vital Signs Vital Signs Past 12 Hours Date Time Temp Pulse Resp B/P (MAP) Pulse Ox O2 Delivery O2 Flow Rate FiO2 08/09/17 11:36 36.8 97 18 142/80 (100) 97 Room Air 08/09/17 08:28 96 Room Air 08/09/17 08:00 Room Air 08/09/17 07:47 36.9 93 18 138/78 (98) 96 Room Air Exam CONST: A&O x3, NAD, chronically ill appearing male. mentally handicapped CHEST: RRR lungs decreased,but ctab ABD: soft, nontender, + bs x 4 quad EXT: LLE AKA site C/D/I with lemuel. + local tenderness and edema. No erythema, ecchymosis or discharge Intake & Output 8-Hour Column 08/09/17 08/09/17 08/10/17 15:59 23:59 07:59 Intake Total 1312 ml Output Total 600 ml Balance 712 ml 24-Hour Column 08/10/17 07:59 Intake Total 1312 ml Output Total 600 ml Balance 712 ml Laboratory and Microbiology Results Past 24 Hours Test 08/08/17 13:50 08/08/17 16:56 08/08/17 20:45 08/09/17 04:00 Range/Units Bedside Glucose 134 116 119 70-99 mg/dl Test 08/09/17 04:44 08/09/17 08:11 Range/Units Bedside Glucose 107 70-99 mg/dl ASSESSMENT and PLAN: s/p LLE AKA d/t LLE BKA necrosis Severe PAD with rest pain Pt doing well post op. Pain controlled with medication. Awaiting placement for rehab.
[2017-08-09] MEDS: MoRPHine SULFATE 4 MG/ML 1 ML CARP\\VIAL IV PRN (13:49)
[2017-08-09 15:34] VITALS: BP 166/84; PULSE 101; TEMP 36.6; O2SAT 97
[2017-08-09 16:34] LABS: HEMATOCRIT 30.6 % (42-52); HEMOGLOBIN 10.3 g/dL (14.0-18.0); MEAN CORPUSCULAR HEMOGLOBIN 28.9 pg (25-34); MEAN CORPUSCULAR HGB CONC 33.7 g/dl (32-36); MEAN PLATELET VOLUME 9.8 fL (7.4-10.4); PLATELET COUNT 361 K/uL (130-400); RED CELL DISTRIBUTION WIDTH CV 13.4 % (11.5-14.5); RED CELL DISTRIBUTION WIDTH SD 41.9 fL (36.4-46.3); WHITE BLOOD COUNT 14.62 K/uL (4.8-10.8)
[2017-08-09 17:11] LABS: CREATININE 0.88 mg/dl (0.60-1.40)
[2017-08-09] MEDS: ATORVASTATIN 40 MG TAB PO SCH (20:20)
[2017-08-09] MEDS: TAMSULOSIN HCL 0.4 MG CAP PO SCH (20:21)
[2017-08-09] MEDS: QUETIAPINE FUMARATE 100 MG TAB PO SCH (20:21)
[2017-08-09] MEDS: INSULIN GLARGINE SOLOSTAR 100 UNITS/ML 3 ML PEN SC SCH (20:28)
[2017-08-09 23:04] VITALS: BP 118/80; TEMP 36.7; O2SAT 95
[2017-08-10] VITALS (7 sets, daily range): BP systolic 118–188; BP diastolic 67–98; PULSE 51–103; TEMP 36.3–36.9; O2SAT 94–96
[2017-08-10] MEDS: HYDROmorphone HCL 2 MG TAB PO SCH ×6 (03:45→23:30)
[2017-08-10] MEDS: INSULIN HUMAN REGULAR SC SCH ×4 (08:00→21:00)
[2017-08-10] MEDS: ENOXAPARIN 30 MG/0.3 ML SYR SQ SCH ×3 (08:00→20:42)
[2017-08-10] MEDS: LIDODERM (LIDOCAINE) PATCH 5% TD SCH (08:57)
[2017-08-10] MEDS: CLOPIDOGREL BISULFATE 75 MG TAB PO SCH (08:58)
[2017-08-10] MEDS: PANTOprazole SOD 40 MG TAB PO SCH ×2 (08:58→22:07)
[2017-08-10] MEDS: ASPIRIN 81 MG ECTAB PO SCH (08:58)
[2017-08-10] MEDS: SERTRALINE HCL 50 MG TAB PO SCH (08:58)
[2017-08-10] MEDS: GABAPENTIN 100 MG CAP PO SCH ×4 (08:58→22:04)
[2017-08-10] MEDS: METFORMIN HCL 500 MG TAB PO SCH ×2 (08:58→18:39)
[2017-08-10 08:59] LABS: CALCIUM 7.9 mg/dl (8.5-10.1); CREATININE 0.72 mg/dl (0.60-1.40); POTASSIUM 4.1 mmol/L (3.5-5.1)
[2017-08-10] MEDS: SULFACETAMIDE SODIUM 10% OP SOLN 15 ML BTL OPL SCH ×4 (08:59→21:00)
[2017-08-10] MEDS: SODIUM CHLORIDE 0.9% 1000ML 1,000 ML IV SCH (11:57)
--- NOTE | 2017-08-10 13:25 | Progress Note ---
Progress Note Date of Service: Aug 10, 2017. Subjective 61 yo m with multiple medical problems, s/p LLE AKA, seen in f/u today. Pt admits LLE pain, but states controlled with medications. No new complaints. Objective Vital Signs Vital Signs Past 12 Hours Date Time Temp Pulse Resp B/P (MAP) Pulse Ox O2 Delivery O2 Flow Rate FiO2 08/10/17 12:39 188/78 (114) 08/10/17 12:36 36.7 103 18 183/95 (124) 94 Room Air 08/10/17 08:07 36.9 102 18 156/82 (106) 94 Room Air 08/10/17 08:00 Room Air Exam CONST: A&O x3, NAD, chronically ill appearing male. mentally handicapped CHEST: RRR lungs decreased,but ctab ABD: soft, nontender, + bs x 4 quad EXT: LLE AKA site C/D/I with lemuel. + local tenderness and edema. No erythema, ecchymosis or discharge Laboratory and Microbiology Results Past 24 Hours Test 08/09/17 16:17 08/09/17 16:57 08/09/17 20:26 08/10/17 07:57 Range/Units White Blood Count 14.62 4.8-10.8 K/uL Red Blood Count 3.56 4.7-6.1 M/uL Hemoglobin 10.3 14.0-18.0 g/dL Hematocrit 30.6 42-52 % Mean Corpuscular Volume 86.0 80-100 fL Mean Corpuscular Hemoglobin 28.9 25-34 pg Mean Corpuscular Hemoglobin Concent 33.7 32-36 g/dl RDW Standard Deviation 41.9 36.4-46.3 fL RDW Coefficient of Variation 13.4 11.5-14.5 % Platelet Count 361 130-400 K/uL Mean Platelet Volume 9.8 7.4-10.4 fL Creatinine 0.88 0.72 0.60-1.40 mg/dl Est Creatinine Clear Calc Drug Dose 89.7 109.7 ml/min Estimated GFR () 108.2 117.5 Estimated GFR (Non- 93.4 101.4 Bedside Glucose 116 133 70-99 mg/dl Sodium Level 138 136-145 mmol/L Potassium Level 4.1 3.5-5.1 mmol/L Chloride Level 106 98-107 mmol/L Carbon Dioxide Level 25 21-32 mmol/L Anion Gap 7.0 3-11 mmol/L Blood Urea Nitrogen 15 7-18 mg/dl BUN/Creatinine Ratio 20.1 10-20 Random Glucose 67 70-99 mg/dl Calcium Level 7.9 8.5-10.1 mg/dl Test 08/10/17 08:06 Range/Units Bedside Glucose 71 70-99 mg/dl ASSESSMENT and PLAN: s/p LLE AKA Necrotic LLE BKA stump Severe PAD with rest pain Pt doing well pos top. Ok for d/c to rehab when bed available.
[2017-08-10] MEDS: INSULIN GLARGINE SOLOSTAR 100 UNITS/ML 3 ML PEN SC SCH (21:00)
[2017-08-10] MEDS: QUETIAPINE FUMARATE 100 MG TAB PO SCH (22:03)
[2017-08-10] MEDS: TAMSULOSIN HCL 0.4 MG CAP PO SCH (22:04)
[2017-08-10] MEDS: ATORVASTATIN 40 MG TAB PO SCH (22:04)
[2017-08-11] MEDS: HYDROmorphone HCL 2 MG TAB PO SCH ×3 (03:48→13:01)
[2017-08-11 08:05] VITALS: BP 152/78; PULSE 104; TEMP 36.8; O2SAT 97
[2017-08-11 09:06] VITALS: O2SAT 97
[2017-08-11] MEDS: SERTRALINE HCL 50 MG TAB PO SCH (09:51)
[2017-08-11] MEDS: METFORMIN HCL 500 MG TAB PO SCH (09:51)
[2017-08-11] MEDS: CLOPIDOGREL BISULFATE 75 MG TAB PO SCH (09:51)
[2017-08-11] MEDS: ASPIRIN 81 MG ECTAB PO SCH (09:54)
[2017-08-11] MEDS: GABAPENTIN 100 MG CAP PO SCH ×2 (09:54→13:01)
[2017-08-11] MEDS: PANTOprazole SOD 40 MG TAB PO SCH (09:55)
[2017-08-11] MEDS: LIDODERM (LIDOCAINE) PATCH 5% TD SCH (09:56)
[2017-08-11] MEDS: SULFACETAMIDE SODIUM 10% OP SOLN 15 ML BTL OPL SCH ×2 (10:02→13:00)
[2017-08-11] MEDS: ENOXAPARIN 30 MG/0.3 ML SYR SQ SCH (10:06)
[2017-08-11] MEDS: INSULIN HUMAN REGULAR SC SCH ×2 (10:06→13:00)
--- NOTE | 2017-08-11 10:54 | Progress Note ---
Progress Note Date of Service: Aug 11, 2017. Subjective 61 yo m with multiple medical problems, s/p LLE AKA d/t necrotic BKA, seen in f/ u today. Pt admits stump pain. Denies any other complaints Objective Vital Signs Vital Signs Past 12 Hours Date Time Temp Pulse Resp B/P (MAP) Pulse Ox O2 Delivery O2 Flow Rate FiO2 08/11/17 09:06 97 Room Air 08/11/17 08:05 36.8 104 16 152/78 (102) 97 Room Air 08/11/17 08:05 Room Air 08/10/17 23:20 Room Air 08/10/17 23:01 36.9 101 18 165/98 (120) 94 Room Air Exam CONST: A&O x3, NAD, chronically ill appearing male. mentally handicapped CHEST: RRR lungs decreased,but ctab ABD: soft, nontender, + bs x 4 quad EXT: LLE AKA site C/D/I with lemuel. + local tenderness and edema. No erythema, ecchymosis or discharge Laboratory and Microbiology Results Past 24 Hours Test 08/10/17 11:57 08/10/17 17:09 08/10/17 20:38 Range/Units Bedside Glucose 79 95 119 70-99 mg/dl ASSESSMENT and PLAN: s/p LLE AKA d/t necrotic BKA Severe PAD with rest pain Pt doing well post op. plan for d/c to rehab when placed.
[2017-08-11] MEDS ORDERED: NICOTINE 21 MG/24 HR TDSY TD PRN (11:00)
[2017-08-11] MEDS ORDERED: NURSING VERBAL MED ORDER ONE (11:00)
[2017-08-11 13:05] VITALS: BP 146/85; PULSE 106; TEMP 36.8; O2SAT 95
[2017-08-11] MEDS ORDERED: HYDR2TAB48 PO (13:32)
[2017-08-11] MEDS ORDERED: TRAM-10 PO (13:32)
--- NOTE | 2017-08-11 13:34 | Discharge Instructions ---
Discharge Instructions Date of Service Aug 11, 2017. Admission Reason for Admission: Left [id number] Amputation Infection Discharge Discharge Diagnosis / Problem: Non healing infected BKA stump Discharge Goals Goal(s): Therapeutic intervention Activity Recommendations Activity Limitations: per Instructions/Follow-up section . Instructions / Follow-Up Instructions / Follow-Up Call [phone] to schedule a follow up appointment if one not already scheduled. ACTIVITY RECOMMENDATIONS: See Above SPECIAL CARE INSTRUCTIONS: Call your doctor if: * Temperature above 101 degrees * Pain not relieved by pain medicine ordered * There is increased drainage or redness from any incision * You have any unanswered questions or concerns. Current Hospital Diet Patient's current hospital diet: Diabetes Type 2 Diet Discharge Diet Recommended Diet: Diabetes Type 2 Diet Procedures Procedures Performed: left above knee amputation Pending Studies Studies pending at discharge: no Laboratory Results Hemoglobin A1c Test 06/10/17 10:56 Range/Units Estimated Average Glucose 154 mg/dl Hemoglobin A1c 7.0 H 4.5-5.6 % Medical Emergencies . Who to Call and When: Medical Emergencies: If at any time you feel your situation is an emergency, please call 911 immediately. . Non-Emergent Contact Non-Emergency issues call your: Surgeon . "Provider Documentation" section prepared by Davin Mckeon. . VTE Core Measure Inpt VTE Proph given/why not?: Other Anticoagulation [place] Drug Monitoring Program Search Results: no issues identified
[2017-08-11] MEDS ORDERED: NRN/100 PO ×2 (13:35→13:37)
--- NOTE | 2017-08-11 13:38 | Progress Note ---
Progress Note Date of Service Aug 11, 2017. Progress Note Patient for transfer today wound healing well D/C today
[2017-08-11 14:10] VITALS: BP 146/85; PULSE 106; TEMP 36.8; O2SAT 95
--- NOTE | 2017-08-15 09:51 | DISCHARGE SUMMARY ---
ADMISSION DIAGNOSES: 1. Necrosis of left leg [id number] amputation. 2. Severe peripheral arterial disease with rest pain. DISCHARGE DIAGNOSES: 1. Status post left lower extremity above the knee amputation. 2. Infected and necrotic left lower extremity [id number] amputation. 3. Severe peripheral arterial disease with rest pain. DISCHARGE CONDITION: Stable. CONSULTATIONS IN THE HOSPITAL: Included medicine for evaluation and management of postop delirium. PROCEDURES IN THE HOSPITAL: Included his left leg above the knee amputation, which was performed on 08/03/2017 with an EBL of 100 mL and no significant complications. HISTORY OF PRESENT ILLNESS: Mr. Liu is a 61-year-old male who presented to Dr. Mckeon's office approximately 2 months prior to this with severe pain in his left lower extremity. Angiography was attempted but unsuccessful in alleviating his discomfort due to severe infrapopliteal disease. He subsequently underwent below the knee amputation due to the rest pain and initially this appeared to be doing generally well; however, when he arrived in the office for his 2-3 week followup he was noted to have a significant area of necrosis and malodor which was possibly due to pressure necrosis versus infection. At that time he was recommended to consider undergoing an above the knee amputation and he agreed. HOSPITAL COURSE: The patient was admitted after undergoing his left leg above-knee amputation. Postoperatively, he was noted to have some hospital induced delirium where he was combative with staff and uncooperative, refusing a significant amount of care. After attempts to injure staff, the patient was placed in soft arm restraints for postop day 1 and 2. Eventually he was calmer and more cooperative and no longer combative with staff. During this time his above the knee amputation site appeared to be healing well, had intact wound with lemuel. The area was tender but was without any redness. Pain control was done with medication and he was felt to be stable enough for discharge; however, mental health social worker had difficulty finding rehabilitation placement for the patient. Rehabilitation placement was finally found on postop day 7 and he was felt to be stable enough for discharge at that time. PHYSICAL EXAMINATION: VITAL SIGNS: On day of discharge, vital signs were as follows: Pulse of 106, respiratory rate of 16, blood pressure 146/85, pulse oximetry 95% on room air. CONSTITUTIONAL: In general the patient is a chronically ill-appearing, middle-aged male in no acute distress. The patient is noted to be mentally handicapped. HEAD: Normocephalic and atraumatic. EYES: EOMI. EARS, NOSE, THROAT: Demonstrated no hearing loss, rhinorrhea or pharyngeal erythema. NECK: Supple, nontender with a midline trachea without masses or crepitus. LUNGS: Demonstrated no dyspnea. They were decreased somewhat throughout but clear bilaterally. CARDIOVASCULAR: Demonstrated nondisplaced apical impulse with a regular rate and rhythm. His peripheral pulses are full and equal in all extremities unless otherwise noted, specifically they were normal in his carotid, brachial, radial and femoral pulses. Right lower extremity distal pulses are nonpalpable. He has brisk capillary refill to the right foot and his left leg the above knee amputation. ABDOMEN: Soft, nontender with normoactive bowel sounds in all 4 quadrants without guarding or rebound. There was no flank or CVA tenderness. EXTREMITIES: Bilateral upper extremities demonstrate no cyanosis, edema, clubbing, varicosities or ulcers. The patient's left lower extremity above the knee amputation site incision is well approximated and healing appropriately. The area is tender and mildly edematous but has no erythema, ecchymosis or discharge noted. The wound is dry. DIET UPON DISCHARGE: Should be a low-cholesterol AHA diet. MEDICATIONS UPON DISCHARGE: Reconciled on the chart and are as per the discharge instructions. Followup should be with Dr. Mckoen or his PA Nahomy Rico in 2 weeks or so for reevaluation and possible removal of lemuel. The patient was advised to call with any other questions.
== END 2017-08-11 15:30 | DRG 475 ==
LOC: C.ACU 12:32 → C.MSN 17:12 → ENRESERV 17:18
PROVIDERS: ADMIT Surgery Vascular Surgery; ATTEND Surgery Vascular Surgery
PROC: 0Y6D0Z3 Detachment at Left Upper Leg, Low, Open Approach (ICD-10-PCS; principal; 2017-08-03 14:30)
DX: T87.54 Necrosis of amputation stump, left lower extremity (principal); D62 Acute posthemorrhagic anemia; N17.9 Acute kidney failure, unspecified; F05 Delirium due to known physiological condition; T41.205A Adverse effect of unspecified general anesthetics, initial encounter; R45.1 Restlessness and agitation; Z78.1 Physical restraint status; E11.40 Type 2 diabetes mellitus with diabetic neuropathy, unspecified; I70.228 Atherosclerosis of native arteries of extremities with rest pain, other extremity; I10 Essential (primary) hypertension; F32.9 Major depressive disorder, single episode, unspecified; I25.10 Atherosclerotic heart disease of native coronary artery without angina pectoris; K21.9 Gastro-esophageal reflux disease without esophagitis; N40.0 Benign prostatic hyperplasia without lower urinary tract symptoms; F17.200 Nicotine dependence, unspecified, uncomplicated; Z79.899 Other long term (current) drug therapy; Z79.4 Long term (current) use of insulin; Z79.82 Long term (current) use of aspirin; Z79.02 Long term (current) use of antithrombotics/antiplatelets; Z89.512 Acquired absence of left leg below knee; Y83.5 Amputation of limb(s) as the cause of abnormal reaction of the patient, or of later complication, without mention of misadventure at the time of the procedure